=== PATIENT | male | born 1960 | race Caucasian/White ===

== ENCOUNTER 2019-04-09 11:24 | Inpatient (IN) | payer OTHER, SELFPAY ==
[2019-04-09] VITALS (8 sets, daily range): BP systolic 128–172; BP diastolic 84–120; PULSE 84–102; RESP 14–20; TEMP 36.4–36.8; O2SAT 88–99; BMI 27.1
--- NOTE | 2019-04-09 11:48 | XR_ITS ---
WS: [id number] CHEST XRAY TECHNIQUE: Portable chest. CLINICAL INFORMATION: sob COMPARISON: None. FINDINGS: Heart: Cardiomegaly. Lungs: Chronic emphysematous changes. No acute pulmonary infiltrates. Calcified granulomas. Bones: Mild thoracic curve. XR/XR chest 1V portable [id number] IMPRESSION: No acute chest findings
--- NOTE | 2019-04-09 11:49 | ECG_ITS ---
Measurements Intervals [place] Rate: 89 P: 77 AL: 153 QRS: -45 QRSD: 100 T: 28 QT: 386 QTc: 470 SINUS RHYTHM POSSIBLE LEFT ATRIAL ENLARGEMENT [-0.1mV P WAVE IN V1/V2] LOW QRS VOLTAGE IN EXTREMITY LEADS [QRS DEFLECTION < 0.5 mV IN LIMB LEADS] PATTERN CONSISTENT WITH PULMONARY DISEASE LEFT ANTERIOR FASCICULAR BLOCK [QRS AXIS <= -45, QR IN I, RS IN II] No previous ECG available for comparison Electronically Signed On 04-09-2019 20:14:19 FRUIT CUTTER by Sahra Mccann M.D. [email or web address]
[2019-04-09 12:22] LABS: Basophils % 0.4 %; Eosinophils # 0.1 10^3/uL (0.0-0.8); Eosinophils % 0.9 %; Hematocrit 46.5 % (42.0-52.0); Hemoglobin 14.7 g/dL (11.7-16.6); Lymphocytes % 13.2 %; Mean Corpuscular HGB Conc 31.6 g/dL (30.0-36.0); Mean Corpuscular Hemoglobin 33.2 pg (28.0-34.0); Mean Platelet Volume 9.4 fL (7.4-10.4); Monocytes # 0.6 10^3/uL (0.2-0.9); Monocytes % 8.5 %; Neutrophils # 5.7 10^3/uL (1.8-7.7); Neutrophils % 76.7 %; Nucleated Red Blood Cells % 0 %; Platelet Count 295 10^3/cmm (130-400); Red Blood Count 4.43 10^6/uL (4.1-5.3); Red Cell Distribution Width 14.8 % (12.1-15.1); White Blood Count 7.4 10^3/uL (4.0-10.0)
[2019-04-09 12:49] LABS: Alanine Aminotransferase 23 U/L (0-41); Alkaline Phosphatase 113 IU/L (40-130); Anion Gap 14.2 (5-19); Aspartate Amino Transferase 24 U/L (0-40); Blood Urea Nitrogen 18 mg/dL (6-20); Calcium 9.9 mg/dL (8.5-10.5); Carbon Dioxide 31 mmol/L (22-29); Chloride 99 mmol/L (98-107); Globulin 4.5 g/dL (1.3-4.6); Glucose 99 mg/dL (74-109); Potassium 5.2 mmol/L (3.5-5.1); Sodium 139 mmol/L (136-145); Total Bilirubin 0.3 mg/dL (0.15-1.2); Total Protein 7.5 g/dL (6.6-8.7)
--- NOTE | 2019-04-09 15:40 | ED_ITS ---
Entered by Bertha Macias acting as scribe for Charlene Aldrich Apr 09, 2019 11:24 HPI - SOB/Dyspnea General: Chief Complaint: Shortness of Breath/Dyspnea Stated Complaint: FULL OF FLUID Time Seen by Provider: 04/09/19 15:38 Source: patient and RN notes reviewed Mode of arrival: ambulatory Limitations: no limitations History of Present Illness: HPI Narrative: 58 yo male presents to ED with complaints of shortness of breath. The patient states his belly is bloated. He said he is normally short of breath due to his COPD. He has gained 20 pounds recently due to his swelling. He said this began a week ago. He said laying flat does not increase his shortness of breath. The patient's PCP sent the patient to the ED due to his swelling. He gets more short of breath with exertion. He has chest pain with exertion. 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 The patient's PCP is Dr Sagastume. MD elicited complaint: shortness of breath Pertinent past history: COPD Onset (ago): week(s) (1) Context: other (unknown cause) Timing: constant Severity: moderate Exacerbating factors: exertion Relieving factors: nothing Known history of: COPD Associated symptoms: Reports abdominal pain; Deny chest congestion, chest pain, diaphoresis, dizziness, extremity pain, fever(s), hemoptysis, orthopnea, palpitations, polydipsia or syncope Treatment prior to arrival: none Related Data: Home oxygen amount: none Review of Systems General: Reports: other (negative unless marked) Const: Denies: fever, chills, body aches, fatigue, malaise or diaphoresis Eyes: Denies: change in vision or blurry vision ENMT: Denies: throat pain, painful swallowing, hoarseness, ear pain, ear discharge, Change in hearing or nasal discharge Card: Denies: chest pain, palpitations, irregular heart rhythm, syncope, pre- syncope or shortness of breath when lying down Resp: Denies: productive cough, non-productive cough, wheezing, coughing up blood or chest congestion GI: Reports: abdominal pain : Denies: flank pain, difficulty urinating, painful urination, urinary frequency, urinary urgency, decreased urine ouput, urinary incontinence or blood in urine Musc: Denies: neck pain, back pain, extremity pain, joint pain, joint swelling, joint warmth or joint stiffness Skin/Breast: Denies: rash, skin tenderness or yellow skin Neuro: Denies: headache, numbness in extremities, weakness in extremities, changes in sensation, lack of coordination, difficulty walking, dizziness, vertigo or confusion Endo: Denies: excessive thirst, tired all the time, cold intolerance, excessive sweating, flushing or hot flashes Gavino/Lymph: Denies: easy bruising, easy bleeding, petechiae or enlarged lymph nodes All/Imm: Denies: hives, throat swelling, tongue swelling, facial swelling or acute wheezing PFSH ED PFSH: Statuses (acute, chronic, etc) shown below reflect problem list status as previously entered and may not be historically accurate Medical History (Updated 04/09/19 @ 22:04 by Jamaal Cochran MD) COPD (chronic obstructive pulmonary disease) (Acute) History of coronary angiogram (Acute) Hyperlipidemia (Acute) Hypertension (Acute) Peripheral vascular disease (Acute) Surgical History (Updated 04/09/19 @ 22:04 by Jamaal Cochran MD) History of facial surgery (Acute) Family History (Updated 04/09/19 @ 22:05 by Jamaal Cochran MD) Other CAD (coronary artery disease) Social History (Updated 04/09/19 @ 22:05 by Jamaal Cochran MD) Smoking and tobacco status: current every day smoker Alcohol intake: current Alcohol intake frequency: 3 or more drinks per day Alcohol use comment: Binge drinking alcohol Substance/Drug Use: never Physical Exam Const: COMMON NORMALS: no apparent distress, oriented x3, no limitations, healthy appearing and well nourished EXAM LIMITATIONS: no altered mental status GENERAL APPEARANCE: cooperative, well kempt and well developed ORIENTATION/CONSCIOUSNESS: Yes awake HENMT: COMMON NORMALS: normocephalic, head/scalp atraumatic, hearing grossly normal bilaterally, external ears normal, EAC's normal, external nose normal and moist oral mucous membranes HEAD & SCALP: normal to inspection, normocephalic and atraumatic FACE & SINUS: normal facial exam and face symmetric NOSE: external nose normal and nares normal EXTERNAL EAR: Yes external ears normal EXTERNAL AUDITORY CANAL: EAC's normal MOUTH: oral and palatal mucosa normal and tongue normal Eye: COMMON NORMALS: PERRL, EOMs intact bilaterally, conjunctivae normal and no scleral icterus GENERAL EYE: normal appearance of both eyes and normal light reflex CONJUNCTIVA: Yes conjunctivae normal SCLERA: sclerae normal CORNEA: Yes corneas normal PUPIL: Yes PERRL DIRECT OPHTHALMOSCOPY: Yes normal light reflex Neck/C-Spine: COMMON NORMALS: full ROM, no lymphadenopathy, supple, no meningeal signs and no JVD GENERAL: Yes normal visual inspection and Yes trachea midline CERVICAL SPINE: Yes cervical ROM normal Chest: COMMONS NORMALS: inspection of chest normal and palpation of chest normal Resp: COMMON NORMALS: normal respiratory effort, no retractions and no use of accessory muscles EFFORT & INSPECTION: Yes able to speak in complete sentences AUSCULTATION: rales Cardio: COMMON NORMALS: no JVD, regular rate, regular rhythm, S1 normal heart sound, S2 normal heart sound, no gallops, no clicks, no murmurs and no rub JUGULAR VENOUS DISTENTION: no JVD RATE: regular rate RHYTHM: regular rhythm HEART SOUNDS: S1 normal and S2 normal GI: COMMON NORMALS: soft to palpation, non-tender, no hepatosplenomegaly and no masses INSPECTION: Yes normal to inspection PALPATION: Yes soft and Yes no hepatosplenomegaly : COMMON NORMALS: Yes no CVA tenderness BLADDER/KIDNEY EXAM: Yes no CVA tenderness Back/Pelvis: COMMON NORMALS: no CVA tenderness, thoracic and lumbar spine normal to inspection, no thoracic nor lumbar tenderness and thoraco-lumbar ROM normal Extremity: COMMON NORMALS: normal to inspection, full ROM, normal capillary refill, no joint enlargement and no calf tenderness GENERAL: Yes other findings (Bilateral lower extremity edema) Neuro: COMMON NORMALS: oriented x3, CN's II-XII intact bilaterally, moves all extremities, no focal motor deficits and no sensory deficits noted MENINGEAL SIGNS: Yes no meningeal signs Psych: COMMON NORMALS: mental status grossly normal, thought process normal, cooperative, affect normal, speech normal and activity/motor behavior normal APPEARANCE: Yes well kempt SPEECH: Yes normal speech THOUGHT PROCESS: normal thought process Skin: COMMON NORMALS: no rashes or lesions noted, skin turgor normal, no jaundice, no petechiae and no mottling GENERAL SKIN EXAM: no rashes or lesions noted and turgor normal Course Vital Signs: Vital signs: Vital Signs Temperature 97.6 F 04/09/19 22:00 Pulse Rate 102 H 04/09/19 22:00 Respiratory Rate 18 04/09/19 22:00 Blood Pressure 171/117 04/09/19 22:00 Pulse Oximetry 93 04/09/19 22:00 MDM - SOB/Dyspnea MDM Narrative: Medical decision making narrative: Patient comes in complaining of a 20 pound weight gain within a week. He has increased leg swelling. There is no sign of DVT or PE. The case is reviewed with Dr. Cristobal he is agreeable to admit the patient for CHF exacerbation. Lab Data: Attestation: I reviewed the patient's lab results. Labs: Lab Results 04/09/19 04/09/19 04/09/19 Range/Units 11:58 12:12 12:12 WBC 7.4 (4.0-10.0) 10^3/ uL RBC 4.43 (4.1-5.3) 10^6/u L Hgb 14.7 (11.7-16.6) g/dL Hct 46.5 (42.0-52.0) % MCV 105.0 H (80-94) fL MCH 33.2 (28.0-34.0) pg MCHC 31.6 (30.0-36.0) g/dL RDW 14.8 (12.1-15.1) % Plt Count 295 (130-400) 10^3/c mm MPV 9.4 (7.4-10.4) fL Neut % (Auto) 76.7 % Lymph % (Auto) 13.2 % Angelina % (Auto) 8.5 % Eos % (Auto) 0.9 % Baso % (Auto) 0.4 % Neut # (Auto) 5.7 (1.8-7.7) 10^3/u L Lymph # (Auto) 1.0 (0.8-4.8) 10^3/u L Angelina # (Auto) 0.6 (0.2-0.9) 10^3/u L Eos # (Auto) 0.1 (0.0-0.8) 10^3/u L Baso # (Auto) 0.0 (0.0-0.1) 10^3/u L Nucleated RBC % (a uto) 0 % Nucleated RBCs # 0.0 /100WBC D-Dimer (0-0.59) ug/mIFE U Specimen Type Sample Site ABG pH (7.35-7.45) ABG pCO2 (35-45) mmHg ABG pO2 (80.0-100.0) mmH g ABG HCO3 (22-26) mmol/L ABG Base Excess (-2.0-2.0) mmol/ L Gunnar Test Hematocrit (42-52) % O2 Delivery Device O2 Liters/Min % FiO2 % [employer] Teacher ID Sodium 139 (136-145) mmol/L Potassium 5.2 H (3.5-5.1) mmol/L Chloride 99 (98-107) mmol/L Carbon Dioxide 31 H (22-29) mmol/L Anion Gap 14.2 (5-19) BUN 18 (6-20) mg/dL Creatinine 1.1 (0.7-1.2) mg/dL GFR Calculation 69.0 L (90-130) mL/min Glucose 99 (74-109) mg/dL Calcium 9.9 (8.5-10.5) mg/dL Total Bilirubin 0.3 (0.15-1.2) mg/dL AST 24 (0-40) U/L ALT 23 (0-41) U/L Alkaline Phosphata se 113 (40-130) IU/L Troponin T Baselin e (0-15) ng/mL Troponin T 120 Min [place] (0-15) ng/mL Delta Troponin T (0-10) ABS# NT-Pro-B Natriuret Pep (0-125) pg/mL Total Protein 7.5 (6.6-8.7) g/dL Albumin 3.0 L (3.5-5.2) g/dL Globulin 4.5 (1.3-4.6) g/dL Influenza Type A A g Negative (Negative) POC Influenza B Ag Negative (Negative) 04/09/19 04/09/19 04/09/19 Range/Units 12:12 16:22 16:28 WBC (4.0-10.0) 10^3/ uL RBC (4.1-5.3) 10^6/u L Hgb (11.7-16.6) g/dL Hct (42.0-52.0) % MCV (80-94) fL MCH (28.0-34.0) pg MCHC (30.0-36.0) g/dL RDW (12.1-15.1) % Plt Count (130-400) 10^3/c mm MPV (7.4-10.4) fL Neut % (Auto) % Lymph % (Auto) % Angelina % (Auto) % Eos % (Auto) % Baso % (Auto) % Neut # (Auto) (1.8-7.7) 10^3/u L Lymph # (Auto) (0.8-4.8) 10^3/u L Angelina # (Auto) (0.2-0.9) 10^3/u L Eos # (Auto) (0.0-0.8) 10^3/u L Baso # (Auto) (0.0-0.1) 10^3/u L Nucleated RBC % (a uto) % Nucleated RBCs # /100WBC D-Dimer 1.83 H (0-0.59) ug/mIFE U Specimen Type Arterial Sample Site Radial, left ABG pH 7.37 (7.35-7.45) ABG pCO2 54.2 H (35-45) mmHg ABG pO2 87.8 (80.0-100.0) mmH g ABG HCO3 31.4 H (22-26) mmol/L ABG Base Excess 4.6 H (-2.0-2.0) mmol/ L Gunnar Test Pos Hematocrit 43.4 (42-52) % O2 Delivery Device Nc O2 Liters/Min 2.0 % FiO2 28.0 % [employer] ID cak Sodium (136-145) mmol/L Potassium (3.5-5.1) mmol/L Chloride (98-107) mmol/L Carbon Dioxide (22-29) mmol/L Anion Gap (5-19) BUN (6-20) mg/dL Creatinine (0.7-1.2) mg/dL GFR Calculation (90-130) mL/min Glucose (74-109) mg/dL Calcium (8.5-10.5) mg/dL Total Bilirubin (0.15-1.2) mg/dL AST (0-40) U/L ALT (0-41) U/L Alkaline Phosphata se (40-130) IU/L Troponin T Baselin e 28 H (0-15) ng/mL Troponin T 120 Min [place] (0-15) ng/mL Delta Troponin T (0-10) ABS# NT-Pro-B Natriuret Pep (0-125) pg/mL Total Protein (6.6-8.7) g/dL Albumin (3.5-5.2) g/dL Globulin (1.3-4.6) g/dL Influenza Type A A g (Negative) POC Influenza B Ag (Negative) 04/09/19 04/09/19 Range/Units 16:28 16:28 WBC (4.0-10.0) 10^3/ uL RBC (4.1-5.3) 10^6/u L Hgb (11.7-16.6) g/dL Hct (42.0-52.0) % MCV (80-94) fL MCH (28.0-34.0) pg MCHC (30.0-36.0) g/dL RDW (12.1-15.1) % Plt Count (130-400) 10^3/c mm MPV (7.4-10.4) fL Neut % (Auto) % Lymph % (Auto) % Angelina % (Auto) % Eos % (Auto) % Baso % (Auto) % Neut # (Auto) (1.8-7.7) 10^3/u L Lymph # (Auto) (0.8-4.8) 10^3/u L Angelina # (Auto) (0.2-0.9) 10^3/u L Eos # (Auto) (0.0-0.8) 10^3/u L Baso # (Auto) (0.0-0.1) 10^3/u L Nucleated RBC % (a uto) % Nucleated RBCs # /100WBC D-Dimer (0-0.59) ug/mIFE U Specimen Type Sample Site ABG pH (7.35-7.45) ABG pCO2 (35-45) mmHg ABG pO2 (80.0-100.0) mmH g ABG HCO3 (22-26) mmol/L ABG Base Excess (-2.0-2.0) mmol/ L [place] Test Hematocrit (42-52) % O2 Delivery Device O2 Liters/Min % FiO2 % [employer] ID Sodium (136-145) mmol/L Potassium (3.5-5.1) mmol/L Chloride (98-107) mmol/L Carbon Dioxide (22-29) mmol/L Anion Gap (5-19) BUN (6-20) mg/dL Creatinine (0.7-1.2) mg/dL GFR Calculation (90-130) mL/min Glucose (74-109) mg/dL Calcium (8.5-10.5) mg/dL Total Bilirubin (0.15-1.2) mg/dL AST (0-40) U/L ALT (0-41) U/L Alkaline Phosphata se (40-130) IU/L Troponin T Baselin e (0-15) ng/mL Troponin T 120 Min [place] 23.94 H (0-15) ng/mL Delta Troponin T (0-10) ABS# NT-Pro-B Natriuret Pep 6988 H (0-125) pg/mL Total Protein (6.6-8.7) g/dL Albumin (3.5-5.2) g/dL Globulin (1.3-4.6) g/dL Influenza Type A A g (Negative) POC Influenza B Ag (Negative) Imaging Data^: CXR: Radiologist's impression: [place] [address] XRay Report Signed Patient: Filiberto Thomas #: [id number] : 2Acct#:[id number] Age/Sex: 58 / MADM Date: 04/09/19 Loc: [facility]/Bed: Attending Dr: Ordering Provider/Ordering MD: Mouna Arreguin NP Date of Service: 04/09/19 Procedure(s): XR chest 1V portable [id number] Accession Number(s): [id number] Report Number: [id number] WS: [id number] CHEST XRAY TECHNIQUE: Portable chest. CLINICAL INFORMATION: sob COMPARISON: None. FINDINGS: Heart: Cardiomegaly. Lungs: Chronic emphysematous changes. No acute pulmonary infiltrates. Calcified granulomas. Bones: Mild thoracic curve. XR/XR chest 1V portable [id number] IMPRESSION: No acute chest findings Dictated By:Davis Mansfield MD Signed By:Davis Mansfieldigned Date/Time:04/09/19 1247 DD/ CT Abd/Pel: Radiologist's impression: [address] [place] [address] CT Scan Report Signed Patient: Filiberto Thomas #: [id number] : 2Acct#:[id number] Age/Sex: 58 / MADM Date: 04/09/19 Loc: [facility]/Bed: Attending Dr: Ordering Provider/Ordering MD: Charlene Aldrich DO Date of Service: 04/09/19 Procedure(s): CT angio chest w abd pel w con Accession Number(s): [id number] Report Number: [id number] PROCEDURE INFORMATION: Exam: CT Angiography Chest With Contrast Exam date and time: 04/09/2019 5:12 PM Age: 58 years old Clinical indication: Abdominal tenderness; Angina and shortness of breath; Prior surgery; Surgery date: 6+ months; Surgery type: Rib punctured lung; Additional info: Dyspnea TECHNIQUE: Imaging protocol: Computed tomographic angiography of the chest with intravenous contrast. 3D rendering: MIP and/or 3D reconstructed images were created by the technologist. Total DLP: 1317.76 mGy-cm Radiation optimization: All CT scans at this facility use at least one of these dose optimization techniques: automated exposure control; mA and/or kV adjustment per patient size (includes targeted exams where dose is matched to clinical indication); or iterative reconstruction. Contrast material: [id number]; Contrast volume: 95 ml; Contrast route: IV; COMPARISON: CT Chest/Abdomen/Pelvis o 09/10/2013 12:35 AM FINDINGS: Pulmonary arteries: Overall exam quality is good for evaluating the pulmonary arteries. There are no intraluminal filling defects to indicate pulmonary embolism. Aorta: Unremarkable. No aortic aneurysm. No aortic dissection. Lungs: Diffusely thickened septal lines are noted throughout the lungs and have increased since 2013. The overall appearance is most consistent with generalized pulmonary fibrosis. There is centrilobular emphysema with an upper lobe predominance. No pneumonia or mass. Scattered incidental calcified granulomas. Pleural space: Unremarkable. No pneumothorax. No pleural effusion. Heart: Numerous calcified plaques in the left coronary arteries. Lymph nodes: Several mildly enlarged mediastinal and paratracheal lymph nodes up to 1.4 cm, most likely reactive. Bones/joints: Unremarkable. No acute fracture. Soft tissues: Unremarkable. IMPRESSION: 1. No pulmonary embolism or pneumonia. 2. Pulmonary fibrosis and emphysema. 3. Other chronic and incidental findings as described PROCEDURE INFORMATION: Exam: CT Abdomen And Pelvis With Contrast Exam date and time: 04/09/2019 5:12 PM Age: 58 years old Clinical indication: Abdominal tenderness; Angina and shortness of breath; Prior surgery; Surgery date: 6+ months; Surgery type: Rib punctured lung; Additional info: Dyspnea TECHNIQUE: Imaging protocol: Computed tomography of the abdomen and pelvis with intravenous contrast. Total DLP: 1317.76 mGy-cm Radiation optimization: All CT scans at this facility use at least one of these dose optimization techniques: automated exposure control; mA and/or kV adjustment per patient size (includes targeted exams where dose is matched to clinical indication); or iterative reconstruction. Contrast material: [id number]; Contrast volume: 95 ml; Contrast route: IV; COMPARISON: CT Chest/Abdomen/Pelvis o 09/10/2013 12:35 AM FINDINGS: Liver: Normal. No mass. Gallbladder and bile ducts: Normal. No calcified stones. No ductal dilation. Pancreas: Normal. No ductal dilation. Spleen: Normal. No splenomegaly. Adrenals: Both adrenal glands are mildly enlarged and have a fatty component similar to 2014. This may be due to adenomas and/or hypertrophy. Follow-up is not needed. Kidneys and ureters: Normal. No hydronephrosis. Stomach and bowel: Scattered distal colonic diverticula are not inflamed. Appendix: The appendix is normal. Intraperitoneal space: Trace pelvic free fluid. Vasculature: Numerous calcified plaques throughout the arterial tree. There is significant stenosis with near occlusion in both common femoral arteries due to heavy calcified plaque. Lymph nodes: Unremarkable. No enlarged lymph nodes. Bladder: Unremarkable as visualized. Reproductive: Unremarkable as visualized. Bones/joints: L5-S1 4 mm of grade 1 subluxation due to bilateral chronic pars defects. Soft tissues: Unremarkable. Other findings: Mild to moderate generalized 3rd spacing of fluids. CT/CT angio chest w abd pel w con IMPRESSION: 1. No acute abdominal or pelvic findings. 2. Incidental findings as described. Radiation Dose CTDIVOL = (mGy): DLP = 1317.76~1317.76 (mGy-cm) Dictated By:Jose Mercado MD Signed By:Jose Mercadoigned Date/Time:04/09/191939 DD/ Discharge Plan Discharge Patient Disposition: Admitted As Inpatient Admit Provider: Jamaal Cochran Clinical Impression: Congestive heart failure Qualifiers: Heart failure type: unspecified Heart failure chronicity: acute Qualified Code(s): I50.9 - Heart failure, unspecified Condition: Stable Referrals: Jag Sagastume [Primary Care Provider] - Discharge Date/Time: 04/09/19 21:54 Coding Level of Care Code ED Media Consultant for Chg Fwd Exam Problem Focused The documentation recorded by the Gilberto rowe Valerie R, accurately reflects the service I personally performed and the decisions made by Elinor taveras Eli N Apr 09, 2019 11:24
--- NOTE | 2019-04-09 15:53 | ECG_ITS ---
Measurements Intervals [place] Rate: 82 P: 72 OR: 157 QRS: 27 QRSD: 105 T: 34 QT: 383 QTc: 448 SINUS RHYTHM LOW QRS VOLTAGE IN EXTREMITY LEADS [QRS DEFLECTION < 0.5 mV IN LIMB LEADS] POSSIBLE ANTERIOR MYOCARDIAL INFARCTION , OF INDETERMINATE AGE [30 ms Q WAVE IN V3 V3/V4, OR R < 0.2 mV IN V4] No previous ECG available for comparison Electronically Signed On 04-09-2019 20:15:02 POLYSTYRENE MOLDING MACHINE TENDER by Sahra Mccann M.D. [id number]
--- NOTE | 2019-04-09 16:02 | PC.NURSE ---
Placed pt on via NC at 3 lpm Increased 02 sats to 97%
--- NOTE | 2019-04-09 16:26 | CTR_ITS ---
PROCEDURE INFORMATION: Exam: CT Angiography Chest With Contrast Exam date and time: 04/09/2019 5:12 PM Age: 58 years old Clinical indication: Abdominal tenderness; Angina and shortness of breath; Prior surgery; Surgery date: 6+ months; Surgery type: Rib punctured lung; Additional info: Dyspnea TECHNIQUE: Imaging protocol: Computed tomographic angiography of the chest with intravenous contrast. 3D rendering: MIP and/or 3D reconstructed images were created by the technologist. Total DLP: 1317.76 mGy-cm Radiation optimization: All CT scans at this facility use at least one of these dose optimization techniques: automated exposure control; mA and/or kV adjustment per patient size (includes targeted exams where dose is matched to clinical indication); or iterative reconstruction. Contrast material: [id number]; Contrast volume: 95 ml; Contrast route: IV; COMPARISON: CT Chest/Abdomen/Pelvis o 09/10/2013 12:35 AM FINDINGS: Pulmonary arteries: Overall exam quality is good for evaluating the pulmonary arteries. There are no intraluminal filling defects to indicate pulmonary embolism. Aorta: Unremarkable. No aortic aneurysm. No aortic dissection. Lungs: Diffusely thickened septal lines are noted throughout the lungs and have increased since 2013. The overall appearance is most consistent with generalized pulmonary fibrosis. There is centrilobular emphysema with an upper lobe predominance. No pneumonia or mass. Scattered incidental calcified granulomas. Pleural space: Unremarkable. No pneumothorax. No pleural effusion. Heart: Numerous calcified plaques in the left coronary arteries. Lymph nodes: Several mildly enlarged mediastinal and paratracheal lymph nodes up to 1.4 cm, most likely reactive. Bones/joints: Unremarkable. No acute fracture. Soft tissues: Unremarkable. IMPRESSION: 1. No pulmonary embolism or pneumonia. 2. Pulmonary fibrosis and emphysema. 3. Other chronic and incidental findings as described PROCEDURE INFORMATION: Exam: CT Abdomen And Pelvis With Contrast Exam date and time: 04/09/2019 5:12 PM Age: 58 years old Clinical indication: Abdominal tenderness; Angina and shortness of breath; Prior surgery; Surgery date: 6+ months; Surgery type: Rib punctured lung; Additional info: Dyspnea TECHNIQUE: Imaging protocol: Computed tomography of the abdomen and pelvis with intravenous contrast. Total DLP: 1317.76 mGy-cm Radiation optimization: All CT scans at this facility use at least one of these dose optimization techniques: automated exposure control; mA and/or kV adjustment per patient size (includes targeted exams where dose is matched to clinical indication); or iterative reconstruction. Contrast material: [id number]; Contrast volume: 95 ml; Contrast route: IV; COMPARISON: CT Chest[facility] 09/10/2013 12:35 AM FINDINGS: Liver: Normal. No mass. Gallbladder and bile ducts: Normal. No calcified stones. No ductal dilation. Pancreas: Normal. No ductal dilation. Spleen: Normal. No splenomegaly. Adrenals: Both adrenal glands are mildly enlarged and have a fatty component similar to 2013. This may be due to adenomas and/or hypertrophy. Follow-up is not needed. Kidneys and ureters: Normal. No hydronephrosis. Stomach and bowel: Scattered distal colonic diverticula are not inflamed. Appendix: The appendix is normal. Intraperitoneal space: Trace pelvic free fluid. Vasculature: Numerous calcified plaques throughout the arterial tree. There is significant stenosis with near occlusion in both common femoral arteries due to heavy calcified plaque. Lymph nodes: Unremarkable. No enlarged lymph nodes. Bladder: Unremarkable as visualized. Reproductive: Unremarkable as visualized. Bones/joints: L5-S1 4 mm of grade 1 subluxation due to bilateral chronic pars defects. Soft tissues: Unremarkable. Other findings: Mild to moderate generalized 3rd spacing of fluids. CT/CT angio chest w abd pel w con IMPRESSION: 1. No acute abdominal or pelvic findings. 2. Incidental findings as described. Radiation Dose CTDIVOL = (mGy): DLP = 1317.76~1317.76 (mGy-cm)
[2019-04-09 16:33] LABS: ABG PCO2 54.2 mmHg (35-45); ABG PH Result 7.37 (7.35-7.45); Arterial Blood Gas Hematocrit 43.4 % (42-52); Base Excess ABG 4.6 mmol/L (-2.0-2.0); Blood Gas Allen Test Pos; Blood Gas Sample Site Radial, left; Blood Gas Sample Type Arterial; HCO3 ABG 31.4 mmol/L (22-26); Oxygen Device NC; PO2 ABG 87.8 mmHg (80.0-100.0)
[2019-04-09 16:50] LABS: D Dimer 1.83 ug/mIFEU (0-0.59)
[2019-04-09 16:54] LABS: Troponin(5th) Baseline 28 ng/mL (0-15)
[2019-04-09 16:55] LABS: Troponin 5 2HR 23.94 ng/mL (0-15)
[2019-04-09 17:00] LABS: NT Pro B Type Natriuretic Pept 6988 pg/mL (0-125)
[2019-04-09 17:09] LABS: Influenza A by IFA Negative (Negative); Influenza B by IFA Negative (Negative)
[2019-04-09] MEDS: iodixanol 320 mg/mL 100mL Btl 95 ML IV (18:18)
[2019-04-09] MEDS: nitroglycerin 1 gm/inch oint Pkt 1 INCH TOPICAL (19:24)
[2019-04-09] MEDS: LORazepam 1 mg Tablet PO (20:19)
[2019-04-09] MEDS: nicotine 21 mg Patch 1 PATCH TRANSDERMA (20:19)
--- NOTE | 2019-04-09 21:53 | ECG_ITS ---
Measurements Intervals Gregory Rate: 126 P: MD: 0 QRS: 95 QRSD: 115 T: -10 QT: 316 QTc: 459 Sinus TACHYCARDIA BORDERLINE RIGHT AXIS DEVIATION [QRS AXIS > 90] LOW QRS VOLTAGE IN EXTREMITY LEADS [QRS DEFLECTION < 0.5 mV IN LIMB LEADS] POSSIBLE ANTERIOR MYOCARDIAL INFARCTION [30 ms Q WAVE IN V3/V4, OR R < 0.2 mV IN V4], OF INDETERMINATE AGE INTERPRETATION BASED ON A DEFAULT AGE OF 40 YEARS Compared to ECG 04/09/2019 16:35:49 Sinus rhythm no longer present Myocardial infarct finding still present Electronically Signed On 04-10-2019 9:31:55 VACUUM CONDITIONER OPERATOR by Luis French M.D. [email or web address]
--- NOTE | 2019-04-09 21:58 | P.HP_ITS ---
Providers/Chief Complaint Admitting Physician: Jamaal Cochran MD Primary Care Provider: Jag Sagastume Chief Complaint: CHF History of Present Illness Filiberto Thomas is a 58 year old male with a past medical history of COPD, not oxygen dependent, hypertension, hyperlipidemia, CAD, who presents to the emergency room due to complaints of shortness of breath, and rapid weight gain, bilateral extremity edema, anasarca. Patient states that he was sent to [facility] from the [place] due to 20 pound weight gain in the last 3 weeks, with anasarca, bilateral lower extremity edema, and shortness of breath. Patient states that recently has become more short of breath with exertion, normally states that he can walk 1/8 of a mile without getting short of breath, now is short of breath less than 100 feet, has orthopnea, paroxysmal nocturnal dyspnea, has bilateral lower extremity swelling, generalized anasarca, he complains of abdominal fullness. Patient denies a history of CHF. Patient denies chest pain. Patient has a history of CAD, with a positive stress test, with an angiogram showing an occluded artery with good collateral blood flow. No lightheadedness, no dizziness. Patient is not on Lasix as outpatient. Patient has a history of COPD, has more than a [id number] history of smoking, denies wheezing, has a chronic productive cough with yellow sputum, no fevers, no chills, notes sick contacts. Review of Systems Const: Denies: fever, chills, fatigue or malaise Eyes: Denies: change in vision or blurry vision ENMT: Denies: nasal congestion Card: Denies: chest pain or palpitations Resp: Reports: shortness of breath; Denies: productive cough, non-productive cough or wheezing GI: Denies: abdominal pain, nausea, vomiting, vomiting blood, diarrhea, cons tipation, blood in stool or black tarry stool : Denies: flank pain, difficulty urinating, painful urination or urinary frequency Musc: Denies: neck pain or back pain Skin/Breast: Denies: rash Neuro: Denies: headache, dizziness or vertigo Psych: Denies: anxiety or depression Endo: Denies: excessive urination or excessive thirst Medications/Allergies Home Medications Medication Instructions Recorded Confirmed Last Taken Type albuterol sulfate [Ventolin HFA] 2 puff INHALATION QID PRN 04/09/19 04/09/19 Unknown History aspirin [Aspir-81] 81 mg PO DAILY 04/09/19 04/09/19 04/08/19 History budesonide-formoterol [Symbicort] 2 puff INHALATION BID 04/09/19 04/09/19 04/09/19 History carvedilol 6.25 mg PO BID 04/09/19 04/09/19 Unknown History food supplemt, lactose-reduced 1 ea PO BID 04/09/19 04/09/19 Unknown History [Ensure Plus] isosorbide mononitrate 60 mg PO DAILY 04/09/19 04/09/19 Unknown History multivitamin [Multiple Vitamins] 2 tab PO DAILY 04/09/19 04/09/19 Unknown Hist ory pravastatin 20 mg PO QPM 04/09/19 04/09/19 Unknown History quetiapine [Seroquel] 100 mg PO BEDTIME 04/09/19 04/09/19 Unknown History spironolacton-hydrochlorothiaz 1 tab PO DAILY 04/09/19 04/09/19 Unknown History thiamine HCl (vitamin B1) 100 mg PO DAILY 04/09/19 04/09/19 Unknown History Allergies Allergy/AdvReac Type Severity Reaction Status Date / Time poison justine extract Allergy Unknown Unknown Verified 04/09/19 16:26 bee venom protein (honey bee) Allergy ALGY-Anaphy Verified 04/09/19 11:47 laxis PFSH Acute PFSH: Statuses (acute, chronic, etc) shown below reflect problem list status as previously entered and may not be historically accurate Medical History (Updated 04/09/19 @ 22:04 by Jamaal Cochran MD) COPD (chronic obstructive pulmonary disease) (Acute) History of coronary angiogram (Acute) Hyperlipidemia (Acute) Hypertension (Acute) Peripheral vascular disease (Acute) Surgical History (Updated 04/09/19 @ 22:04 by Jamaal Cochran MD) History of facial surgery (Acute) Family History (Updated 04/09/19 @ 22:05 by Jamaal Cochran MD) Other CAD (coronary artery disease) Social History (Updated 04/09/19 @ 22:05 by Jamaal Cochran MD) Smoking and tobacco status: current every day smoker Alcohol intake: current Alcohol intake frequency: 3 or more drinks per day Alcohol use comment: Binge drinking alcohol Substance/Drug Use: never Vitals/I&O/Wt Last Vital Signs Temp 97.9 F 04/09/19 11:40 Pulse 84 04/09/19 21:00 Resp 18 04/09/19 21:00 BP 157/106 04/09/19 21:00 Pulse Ox 96 04/09/19 21:00 Weight last 48 hrs Weight 78.471 kg Physical Exam Const: COMMON NORMALS: no apparent distress and oriented x3 GENERAL APPEARANCE: cooperative and comfortable HENMT: COMMON NORMALS: normocephalic HEAD & SCALP: normocephalic Eye: COMMON NORMALS: PERRL, EOMs intact bilaterally and no papilledema GENERAL EYE: normal appearance of both eyes PUPIL: Yes PERRL DIRECT OPHTHALMOSCOPY: Yes no papilledema Neck/C-Spine: COMMON NORMALS: full ROM, no lymphadenopathy, no JVD and thyroid normal THYROID: thyroid normal Lymph: LYMPHATIC: no lymphadenopathy noted Chest: COMMONS NORMALS: inspection of chest normal Resp: COMMON NORMALS: normal respiratory effort, no retractions and no use of accessory muscles AUSCULTATION: wheezes and diminished lung sounds (Good air entry) diffuse Cardio: COMMON NORMALS: regular rate, regular rhythm, S1 normal heart sound, S2 normal heart sound, no gallops, no clicks and no murmurs JUGULAR VENOUS DISTENTION: JVD RATE: regular rate RHYTHM: regular rhythm HEART SOUNDS: S1 normal and S2 normal GI: COMMON NORMALS: normal to inspection, nondistended, normoactive bowel sounds, soft to palpation, non-tender and no hepatosplenomegaly INSPECTION: Yes anasarca present PALPATION: Yes soft and Yes no hepatosplenomegaly Extremity: COMMON NORMALS: normal to inspection, full ROM and normal capillary refill NARRATIVE EXTREMITY EXAM: 2+ pitting edema Neuro: COMMON NORMALS: oriented x3, CN's II-XII intact bilaterally, moves all extremities and no focal motor deficits Psych: COMMON NORMALS: mental status grossly normal, thought process normal and cooperative THOUGHT PROCESS: normal thought process Data : 04/09/19 12:12 04/09/19 12:12 A&P Assessment and plan (1) Hypercapnic respiratory failure: -Shortness of breath, anasarca, bilateral lower extremity swelling concerning for new onset CHF -Patient had a positive stress test in 2017, followed by a angiogram showing CAD in 1 of the arteries with good collateral blood flow, patient is unsure of the specifics, [facility] Plan: -Strict I's and O, fluid restrictions -Oral metolazone, with bumex -Cardiac echocardiogram -Monitor urine output, monitor creatinine -Telemetry monitoring Status: Acute Code(s): J96.92 - Respiratory failure, unspecified with hypercapnia (2) Peripheral vascular disease: -CT Angio showed Numerous calcified plaques throughout the arterial tree. There is significant stenosis with near occlusion in both common femoral arteries due to heavy calcified plaque. Plan: -We will do ABIs bilateral lower extremities -Patient will require a outpatient follow up with vascular for possible vascular studies Status: Acute Code(s): I73.9 - Peripheral vascular disease, unspecified (3) Hyperlipidemia: Status: Acute Code(s): E78.5 - Hyperlipidemia, unspecified (4) Hypertension: Status: Acute Code(s): I10 - Essential (primary) hypertension (5) COPD (chronic obstructive pulmonary disease): -CT angiogram of the chest showed Diffusely thickened septal lines are noted throughout the lungs and have increased since 2014. The overall appearance is most consistent with generalized pulmonary fibrosis. There is centrilobular emphysema with an upper lobe predominance. No pneumonia or mass. Scattered incidental calcified granulomas. -Currently not in exacerbation -Continue Symbicort -Nebulizers as needed Status: Acute Code(s): J44.9 - Chronic obstructive pulmonary disease, unspecified (6) Congestive heart failure: Echocardiogram Status: Acute Qualifiers: Heart failure chronicity: acute Heart failure type: unspecified Qualified Code(s): I50.9 - Heart failure, unspecified Code(s): I50.9 - Heart failure, unspecified (7) CAD (coronary artery disease): History of obstructive CAD seen on angiogram 1 year ago Status: Acute Code(s): I25.10 - Atherosclerotic heart disease of [place] coronary artery without angina pectoris Attestations Medical Necessity Statement*: Patient requires hospitalization, outpatient with observation, for new onset CHF Coding Level of Care Code Acute Electronics Assembler And Tester for [facility] Fw Diagnoses Hypercapnic respiratory failure J96.92 Peripheral vascular disease I73.9 Hyperlipidemia E78.5 Hypertension I10 COPD (chronic obstructive pulmonary disease) J44.9 Congestive heart failure I50.9 Heart failure chronicity: acute Heart failure type: unspecified CAD (coronary artery disease) I25.10
--- NOTE | 2019-04-09 22:00 | USCV_ITS ---
Filiberto Thomas Age: 58 Gender: M : 1960 Exam Date: 04/10/2019 06:38 Ordering Phys: Jamaal Cochran MD Technologist: Alex Lagos Exam Location: [facility] [place] Indication: POOR PULSES RIGHT LEFT Brachial 105.00 mmHg Brachial 104.00 mmHg Pressure (mmHg) Waveform Pressure (mmHg) Waveform 45.00 MOLD SHAKER 60.00 50.00 DPA 70.00 0.47 Ankle/Brachial Index 0.67 FINDINGS Abnormal resting ABIs bilaterally CONCLUSIONS Abnormal resting ABIs bilaterally, suggestive of severe peripheral artery disease on the right side and moderately severe disease on the left side Dr Joy Lambert MD [facility] (Electronically Signed) Final Date: 10 April 2019 15:17 S
--- NOTE | 2019-04-09 22:00 | USCV_ITS ---
Filiberto Thomas Age: 58 Gender: M : 1960 Exam Date: 04/10/2019 06:20 Ordering Phys: Jamaal Cochran MD Technologist: Alex Lagos Exam Location: [facility] [place] Indication: SOB BP: 105 / 70 HR: 119 Rhythm: Sinus Technical Quality: Suboptimal MEASUREMENTS (Male / Female) Normal Values 2D ECHO LV Diastolic Diameter PLAX 3.8 cm 4.2 - 5.9 / 3.9 - 5.3 cm LV Systolic Diameter PLAX 2.8 cm IVS Diastolic Thickness 1.1 cm 0.6 - 1.0 / 0.6 - 0.9 cm IVS Systolic Thickness 1.7 cm LVPW Diastolic Thickness 1.1 cm 0.6 - 1.0 / 0.6 - 0.9 cm LVPW Systolic Thickness 1.4 cm LVOT Diameter 2.0 cm LV Ejection Fraction 2D Teich 49.3 % LV Ejection Fraction MOD 2C 52.3 % LV Ejection Fraction 2C AL 53.5 % LA Diameter 3.1 cm LA Width 4.1 cm LA Height 5.3 cm RA Width 3.8 cm RA Height 4.7 cm M-MODE LV Diastolic Diameter MM 4.3 cm 4.2 - 5.9 / 3.9 - 5.3 cm LV Systolic Diameter MM 2.7 cm LV Ejection Fraction MM Teich 68.9 % IVS Diastolic Thickness MM 1.2 cm 0.6 - 1.0 / 0.6 - 0.9 cm IVS Systolic Thickness MM 1.4 cm LVPW Diastolic Thickness MM 1.4 cm 0.6 - 1.0 / 0.6 - 0.9 cm LVPW Systolic Thickness MM 1.7 cm RV Diastolic Diameter MM 2.1 cm Aortic Annulus Diameter 3.2 cm LA Ao Ratio MM 1.1 MV E Point Septal Separation 0.9 cm DOPPLER AV Peak Velocity 124.0 cm/s LVOT Peak Velocity 75.0 cm/s AV Area Cont Eq vti 2.5 cm squared AV Area Cont Eq pk 1.9 cm squared MV Area PHT 5.0 cm squared Mitral E to A Ratio 2.7 MV E' Velocity 84.0 cm/s Mitral E to LV E' Septal Ratio 12.3 TR Peak Velocity 197.0 cm/s TR Peak Gradient 15.5 mmHg TV Peak E Velocity 87.0 cm/s Right Atrial Pressure 3.0 mmHg Pulmonary Artery Systolic Pressu 18.5 mmHg FINDINGS Left Ventricle The rhythm is sinus tachycardia which decreases the sensitivity somewhat. The ventricle appears to be normal in size and function. There are no obvious wall motion disturbances. Diastolic function is probably normal. Ejection fraction is about 60%. Right Ventricle Normal right ventricular size and systolic function. Normal right ventricular systolic pressure. Right Atrium The right atrium is normal in size. Left Atrium Mildly increased left atrial size. Mitral Valve Mitral valve not well visualized. No obvious stenosis or regurgitation Aortic Valve Aortic valve not well visualized. No obvious stenosis or regurgitation Tricuspid Valve Tricuspid valve not well visualized. No obvious stenosis or regurgitation Pulmonic Valve Pulmonic valve not well visualized. Pericardium There is a tiny amount of pericardial fluid seen in the apical view. It is not hemodynamically significant. Aorta Normal ascending aorta dimension. CONCLUSIONS The rhythm is sinus tachycardia which decreases the sensitivity somewhat. The ventricle appears to be normal in size and function. There are no obvious wall motion disturbances. Diastolic function is probably normal. Ejection fraction is about 60%. Mildly increased left atrial size. There is a tiny amount of pericardial fluid seen in the apical view. It is not hemodynamically significant. There are no prior echocardiogram studies to compare. Dr. Luis French MD (Electronically Signed) Final Date: 10 April 2019 09:14 S
[2019-04-09 22:22] LABS: Troponin 5 6HR 25.66 ng/L (0-15)
--- NOTE | 2019-04-09 22:30 | PC.NURSE ---
Patient arrived by stretcher from the ER, Patient is alert and oriented to person,time, place, and situation, Patient states, Im hungry Three sandwich trays given, patient at 100 percent, oriented patient to room and call light system, Teaching provided to patient regarding the medications and the importance of weighing daily and intake and output. Patient verbalizes understanding. Patient in good spirits, telling jokes, Respirations even and non-labored. Full admission assessment per flow sheet. Call light within reach. care continued.
[2019-04-09 22:37] LABS: Troponin 5 6HR Delta -2.34 ng/L (0-12)
[2019-04-09] MEDS: enoxaparin 40 mg/0.4 mL Syringe SUBCUT (22:42)
[2019-04-09] MEDS: metOLazone 5 MG Tablet PO (22:42)
[2019-04-09] MEDS: bumetanide 0.25 mg/mL SDV 10 mL 1 MG IV (22:43)
[2019-04-09] MEDS: quetiapine 100 mg Tablet PO (22:43)
[2019-04-09 23:03] LABS: Thyroid Stimulating Hormone 0.77 uIU/mL (0.27-4.20)
[2019-04-10] VITALS (21 sets, daily range): BP systolic 89–114; BP diastolic 64–83; PULSE 89–125; RESP 0–22; TEMP 36.4–37.4; O2SAT 90–99
[2019-04-10] MEDS: LORazepam 2 mg Tablet PO (03:08)
[2019-04-10 04:14] LABS: Basophils % 0.6 %; Eosinophils # 0.1 10^3/uL (0.0-0.8); Eosinophils % 1.6 %; Hematocrit 48.5 % (42.0-52.0); Hemoglobin 14.9 g/dL (11.7-16.6); Mean Corpuscular HGB Conc 30.7 g/dL (30.0-36.0); Mean Corpuscular Hemoglobin 32.5 pg (28.0-34.0); Mean Corpuscular Volume 105.9 fL (80-94); Mean Platelet Volume 9.8 fL (7.4-10.4); Monocytes # 0.5 10^3/uL (0.2-0.9); Monocytes % 9.9 %; Neutrophils # 3.3 10^3/uL (1.8-7.7); Neutrophils % 66.3 %; Nucleated Red Blood Cells % 0 %; Platelet Count 311 10^3/cmm (130-400); Red Blood Count 4.58 10^6/uL (4.1-5.3); Red Cell Distribution Width 14.7 % (12.1-15.1)
[2019-04-10 04:58] LABS: Magnesium 1.4 mg/dL (1.7-2.3); Phosphorus 5.2 mg/dL (2.5-4.5)
[2019-04-10 04:59] LABS: Anion Gap 13.3 (5-19); Blood Urea Nitrogen 17 mg/dL (6-20); Calcium 9.7 mg/dL (8.5-10.5); Carbon Dioxide 35 mmol/L (22-29); Chloride 98 mmol/L (98-107); Glomerular Filtration Rate 62.4 mL/min (90-130); Glucose 127 mg/dL (65-115); Osmolality Calculated 292 mOsm/kg (285-295); Potassium 4.3 mmol/L (3.5-5.1); Sodium 142 mmol/L (136-145)
[2019-04-10 05:00] LABS: Chol HDL Ratio 2.97 mg/dL (1.0-5.00); Cholesterol 92 mg/dL (0-200); HDL Cholesterol 31 mg/dL (60-100); LDL Cholesterol Calculated 42 mg/dL (50-129); LDL HDL Ratio 1.35 RATIO (0.00-3.22); Triglycerides 95 mg/dL (0-150)
[2019-04-10 05:11] LABS: Estmated Average Glucose 123; Hemoglobin A1C 5.9 % (4.0-6.0)
--- NOTE | 2019-04-10 07:05 | PC.NURSE ---
Addendum entered by Gracy Cano RN 04/10/19 07:29: Was called to the patient's room by the CLEANER, CLEANER reported that patient did not look well and 02 saturation checked. Patient saturating 68%, and heart rate increasing, from 120 to 135, Rapid Response initiated, Dr. Cochran, in room with rapid response in progress, patient was placed on CPAP and IV bumex and IV blood pressure medication given as ordered per physician. Patient transferred to ICU room 112 as ordered per physician, Report given to ICU nurse Original Note:
--- NOTE | 2019-04-10 07:11 | XR_ITS ---
WS: [id number] CHEST XRAY TECHNIQUE: Portable chest. CLINICAL INFORMATION: SOB COMPARISON: April 09, 2019 FINDINGS: Heart: Cardiomegaly Lungs: Chronic emphysematous changes. No acute pulmonary infiltrates. Calcified granulomas. Bones: Normal visualized bony structures. XR/XR chest 1V portable [id number] IMPRESSION: No acute chest findings
[2019-04-10] MEDS: bumetanide 0.25 mg/mL SDV 10 mL 2 MG IV (07:17)
[2019-04-10] MEDS: metoprolol tartrate 1 mg/1 mL SDV 5 mL 5 MG (07:17)
--- NOTE | 2019-04-10 07:22 | PM.MISC ---
Miscellaneous Note Purpose of Documentation: At 7:15 AM rapid response was called, patient was having episodes of shortness of breath, with desaturations down to the low 80s. When I was entering the room, patient was put on BiPAP, tolerating it well, good air entry bilaterally, no crackles, no wheezings bilaterally, said that his breathing was better, chest x-ray showed pulmonary vascular congestion, likely patient has acute hypoxic respiratory failure with acute flash pulmonary edema I gave him 2 mg of Bumex. Continue BiPAP 18/10 40% FiO2. Patient has a history of smoking, history of COPD, given 125 mg of Solu-Medrol with a DuoNeb treatment. Patient had SVT on EKG, I gave him 5 mg IV metoprolol, heart rates came down to the 100s to 110s, sinus tachycardia likely related to acute respiratory failure. Currently patient is being moved from CSU to the ICU.
[2019-04-10 07:23] LABS: ABG PCO2 84.2 mmHg (35-45); ABG PH Result 7.23 (7.35-7.45); Alveolar-Arterial Oxygen Gradi 234.7 mmHg (5-10); Arterial Blood Gas Hematocrit 45.6 % (42-52); Base Excess ABG 4.5 mmol/L (-2.0-2.0); Blood Gas Allen Test Pos; Blood Gas Sample Site Radial, left; Blood Gas Sample Type Arterial; HCO3 ABG 35.3 mmol/L (22-26); HGB O2 Sat 92.4 % (95-100); Ionized Calcium Level - ABG 1.3 mmol/L (1.1-1.4); Methemoglobin 0.3 % (0.4-1.5); Oxygen Device BIPAP; Oxygen Saturation ABG 98.6; Potassium Level - ABG 4.8 mmol/L (3.5-5.0); Total Hemoglobin 14.9 g/dL (14-18)
--- NOTE | 2019-04-10 07:47 | PC.NURSE ---
attempted to contact next of kin on the demographics, at , Aydin (patient's son) attempted to be notified at number but was unable to leave a message, and nobody answered the call at this time.
--- NOTE | 2019-04-10 07:48 | PC.NURSE ---
recd from csu per bed after r.r. d/t decreased l.o.c. and low sat.
--- NOTE | 2019-04-10 07:50 | PC.NURSE ---
opens eyes to verbal stimulation
[2019-04-10] MEDS: ipratropium-albuterol 3 mL Neb INHALATION ×6 (08:09→23:46)
--- NOTE | 2019-04-10 10:13 | PC.CHAP ---
Pastoral Care Encounter/Spiritual Assessment Type of Contact [] Declined shoe stitcher visit [] Patient/Family/Request visit [] Outpatient visit [] Follow-up visit [] Physician referral [] Code/Alert [] Routine visit [] Staff referral [] Actively dying [] Patient sleeping [] Family support [] [] Out of room [] Palliative care [] [] Receiving care in room [] Pre-surgical visit [] Trauma [] Long length of stay [] ICU visit [] Other: Relational/Emotional Strength [] Patient feels connected with others/family/visitors/staff [] Distress [] Loneliness/isolation [] Abandonment Spirituality of Patient [] Person of Shilpi [] Attends Uatsdin of their Shilpi [] Believes in Prayer [] Reads Bible or Yazidi materials [] There are Spiritual issues to be addressed Medical Recruiter Interventions [] Prayer [] Active listening [] Non-anxious presence [] Spiritual/emotional support [] Crisis/trauma care [] Spiritual counseling [] Bereavement support [] Provided bereavement packet [] Provided Bible/devotional materials [] Provided toy/stuffed animal, coloring book to patient or family member [] Provided Communion [] Anointing/Stokes [] Salvation [] Completed spiritual assessment [] Other: Impact on Illness or Injury [] Angry [] Fearful [] Anxious [] Often cries [] Exhaustion [] Unable to work [] Unable to attend samaritan [] Unable to walk/stand [] Unable to read [] Unable to drive [] Unable to eat/drink [] Unable to sleep [] Unable to be with family [] Patient intubated [] Other: Summary THE patient was sleeping. The shoe stitcher prayed for the patient outside the door. Time spent with patient 6 min.
[2019-04-10] MEDS: thiamine 100 mg Tablet PO (10:20)
[2019-04-10] MEDS: aspirin 81 mg EC Tablet PO (10:21)
[2019-04-10] MEDS: hydroCHLOROthiazide 25 mg Tablet PO (10:23)
[2019-04-10] MEDS: carvedilol 12.5 mg Tablet 6.25 MG PO ×2 (10:24→17:42)
[2019-04-10] MEDS: folic acid 1 mg Tablet PO (10:24)
[2019-04-10] MEDS: spironolactone 25 mg Tablet PO (10:24)
--- NOTE | 2019-04-10 10:42 | PC.NURSE ---
imdur not given at this time d/t b/p somewhat low.
[2019-04-10] MEDS: multivitamin therapeutic Tablet 1 TAB PO (11:06)
--- NOTE | 2019-04-10 12:34 | P.PN_ITS ---
Subjective Subjective: Interval history: Patient presented yesterday with respiratory failure secondary CHF and COPD exacerbation. He was transferred to ICU early in the morning and supported with BiPAP. We were able to get BiPAP off and patient was able to eat. He denied chest pain and reports that his breathing is much improved. Vitals/I&O/Wt Last Vital Signs Temp 97.6 F 04/10/19 03:02 Pulse 125 H 04/10/19 11:23 Resp 19 H 04/10/19 11:23 BP 89/64 04/10/19 08:17 Pulse Ox 96 04/10/19 11:23 04/09/19 04/10/19 04/10/19 22:59 06:59 14:59 Intake Total 0 / 0 700 / 700 Output Total 400 / 400 Balance 0 / 0 700 / 700 -400 / -400 Weight last 48 hrs Weight 78.471 kg Physical Exam Const: COMMON NORMALS: no apparent distress Resp: COMMON NORMALS: negative for normal respiratory effort OTHER: Coarse breath sounds throughout. Some expiratory wheezing appreciated. Cardio: COMMON NORMALS: regular rate, regular rhythm and S2 normal heart sound RATE: regular rate RHYTHM: regular rhythm HEART SOUNDS: S2 normal OTHER: Trace to 1+ lower extremity edema GI: COMMON NORMALS: normal to inspection, nondistended, normoactive bowel sounds, soft to palpation and non-tender PALPATION: Yes soft Data : 04/10/19 03:10 04/10/19 03:10 A&P Assessment and plan (1) Hypercapnic respiratory failure: -Shortness of breath, anasarca, bilateral lower extremity swelling concerning for new onset CHF -Patient had a positive stress test in 2017, followed by a angiogram showing CAD in 1 of the arteries with good collateral blood flow, patient is unsure of the specifics, [facility] Plan: -Strict I's and O, fluid restrictions -Oral metolazone, with bumex -Cardiac echocardiogram -Monitor urine output, monitor creatinine -Telemetry monitoring Status: Acute Code(s): J96.92 - Respiratory failure, unspecified with hypercapnia (2) Peripheral vascular disease: -CT Angio showed Numerous calcified plaques throughout the arterial tree. There is significant stenosis with near occlusion in both common femoral arteries due to heavy calcified plaque. Plan: -We will do ABIs bilateral lower extremities -Patient will require a outpatient follow up with vascular for possible vascular studies Status: Acute Code(s): I73.9 - Peripheral vascular disease, unspecified (3) Hyperlipidemia: Status: Acute Code(s): E78.5 - Hyperlipidemia, unspecified (4) Hypertension: Status: Acute Code(s): I10 - Essential (primary) hypertension (5) COPD (chronic obstructive pulmonary disease): -CT angiogram of the chest showed Diffusely thickened septal lines are noted throughout the lungs and have increased since 2014. The overall appearance is most consistent with generalized pulmonary fibrosis. There is centrilobular emphysema with an upper lobe predominance. No pneumonia or mass. Scattered incidental calcified granulomas. -Currently not in exacerbation -Continue Symbicort -Nebulizers as needed Status: Acute Code(s): J44.9 - Chronic obstructive pulmonary disease, unspecified (6) Congestive heart failure: Echocardiogram Status: Acute Qualifiers: Heart failure chronicity: acute Heart failure type: unspecified Qualified Code(s): I50.9 - Heart failure, unspecified Code(s): I50.9 - Heart failure, unspecified (7) CAD (coronary artery disease): History of obstructive CAD seen on angiogram 1 year ago Status: Acute Code(s): I25.10 - Atherosclerotic heart disease of [place] coronary artery without angina pectoris (8) Alcohol use disorder: Status: Acute Additional A&P Information Will start patient on prednisone and Protonix for GI protection. Start Levaquin for pneumonia prevention. Continue CIWA protocol Continue ICU monitoring for now with BiPAP support as needed. Attestations Medical Necessity Statement*: Patient with respiratory failure requires close ICU monitoring and treatment Time Spent in Patient Care: 16 - 35 minutes Coding Level of Care Code Acute Heel Seat Flap Stapler for [facility] Fwd Diagnoses Hypercapnic respiratory failure J96.92 Peripheral vascular disease I73.9 Hyperlipidemia E78.5 Hypertension I10 COPD (chronic obstructive pulmonary disease) J44.9 Congestive heart failure I50.9 Heart failure chronicity: acute Heart failure type: unspecified CAD (coronary artery disease) I25.10 Alcohol use disorder
[2019-04-10] MEDS: predniSONE 20 mg Tablet 40 MG PO (13:11)
[2019-04-10] MEDS: levofloxacin-dextrose 5 % 750 MG/150 ML PREMIX 150 MG IV (15:01)
[2019-04-10] MEDS: bumetanide 0.25 mg/mL SDV 10 mL 1 MG IV (17:42)
[2019-04-10] MEDS: atorvastatin 40 mg Tablet 20 MG PO (17:42)
[2019-04-10] MEDS: quetiapine 100 mg Tablet PO (20:19)
[2019-04-10] MEDS: enoxaparin 40 mg/0.4 mL Syringe SUBCUT (20:20)
[2019-04-11] VITALS (26 sets, daily range): BP systolic 94–129; BP diastolic 64–92; PULSE 87–108; RESP 0–20; TEMP 36.6–37.1; O2SAT 87–95
[2019-04-11] MEDS: ipratropium-albuterol 3 mL Neb INHALATION ×5 (03:12→21:01)
[2019-04-11] MEDS: bumetanide 0.25 mg/mL SDV 10 mL 1 MG IV (04:15)
[2019-04-11 05:05] LABS: Magnesium 1.4 mg/dL (1.7-2.3); Phosphorus 4.3 mg/dL (2.5-4.5)
[2019-04-11] MEDS: aspirin 81 mg EC Tablet PO (10:06)
[2019-04-11] MEDS: hydroCHLOROthiazide 25 mg Tablet PO (10:06)
[2019-04-11] MEDS: thiamine 100 mg Tablet PO (10:07)
[2019-04-11] MEDS: pantoprazole DR 40 mg Tablet PO (10:08)
[2019-04-11] MEDS: spironolactone 25 mg Tablet PO (10:08)
[2019-04-11] MEDS: multivitamin therapeutic Tablet 1 TAB PO (10:08)
[2019-04-11] MEDS: folic acid 1 mg Tablet PO (10:08)
[2019-04-11] MEDS: predniSONE 20 mg Tablet 40 MG PO (10:08)
[2019-04-11] MEDS: isosorbide mononitrate ER 60 mg Tablet PO (10:09)
[2019-04-11] MEDS: metOLazone 5 MG Tablet PO (10:09)
[2019-04-11] MEDS: carvedilol 12.5 mg Tablet 6.25 MG PO ×2 (10:09→19:00)
[2019-04-11] MEDS: levofloxacin-dextrose 5 % 750 MG/150 ML PREMIX 150 MG IV (12:13)
--- NOTE | 2019-04-11 13:49 | ECG_ITS ---
NAME OF STUDY: LEXISCAN SESTAMIBI STRESS TEST INDICATION: Unatable angina, NOTE: Please note that this is the electrocardiogram portion of the Lexiscan/Sestamibi stress test. The perfusion scan will be documented separately. DATA: Baseline heart rate was 108 beats per minute. Baseline blood pressure was 126/93 millimeters of mercury. Target heart rate was 163. Maximum heart rate achieved was 114. which was 69 % of the predicted target heart rate. Maximum blood pressure was 126/93 millimeters of mercury. The reason for ending the test was completion of the protocol. The patient did not experience any symptoms. ELECTROCARDIOGRAM: BASELINE: Sinus rhythm. Normal axis. Left ventricular hypertrophy, poor R wave progression in the anterior leads most likely due to lead placement EXERCISE: After Lexiscan injection, no ST-T changes suggestive of ischemic noted. No arrhythmia noted. CONCLUSION: Please note due to baseline abnormality of the EKG specificity and sensitivity of the EKG portion of LexiScan MIBI stress test will be low 1. EKG not suggestive of ischemia 2. Lexiscan injection unremarkable. 3. Perfusion scan will be documented separately. Electronically Signed On 04-12-2019 15:31:22 AUTO BODY BUILDER APPRENTICE by Sahra Mccann M.D. [email or web address]
[2019-04-11] MEDS: FUROsemide 10 mg/mL SDV 10mL 80 MG IVP (14:27)
--- NOTE | 2019-04-11 18:10 | P.PN_ITS ---
Subjective Subjective: Interval history: Patient seen in ICU today. On examination patient is lying comfortably in bed. States his shortness of breath and cough has improved remarkably. He is wondering when can he be discharged. He denies of having any nausea, vomiting, headache, dizziness, palpitations, tremors. On further interviewing patient states he has been having shortness of breath and chest pain on exertion for last 5 to 6 months which is gotten worse in last 2 months. Vitals/I&O/Wt Last Vital Signs Temp 98.5 F 04/11/19 06:00 Pulse 98 04/11/19 17:00 Resp 16 04/11/19 17:00 BP 115/74 04/11/19 17:00 Pulse Ox 94 04/11/19 17:00 04/11/19 04/11/19 04/11/19 06:59 14:59 22:59 Intake Total 120 / 810 870 / 870 Output Total 550 / 2200 2250 / 2250 1650 / 3900 Balance -430 / -1390 -1380 / -1380 -1650 / -3030 Physical Exam Narrative: EXAM NARRATIVE: General: No acute distress, AO x3 HEENT: PERRLA, pupils bilaterally equal and reactive Chest: Normal vesicular breath sounds, bilateral occasional fine crackles, equal good air entry bilaterally CVS: S1-S2 regular, no murmurs, no tachycardia, no gallops, no rubs Abdomen: Soft, nontender, no organomegaly, bowel sounds present Neuro: No focal deficits, no facial deformity, AO x3, power 5/5 in all limbs, no tremors Data : 04/10/19 03:10 04/10/19 03:10 A&P Assessment and plan (1) Hypercapnic respiratory failure: - Status: Acute Code(s): J96.92 - Respiratory failure, unspecified with hypercapnia (2) COPD (chronic obstructive pulmonary disease): Status: Acute Code(s): J44.9 - Chronic obstructive pulmonary disease, unspecified (3) Congestive heart failure: Echocardiogram Status: Acute Qualifiers: Heart failure chronicity: acute Heart failure type: unspecified Qualified Code(s): I50.9 - Heart failure, unspecified Code(s): I50.9 - Heart failure, unspecified (4) Peripheral vascular disease: Status: Acute Code(s): I73.9 - Peripheral vascular disease, unspecified (5) Hyperlipidemia: Status: Acute Code(s): E78.5 - Hyperlipidemia, unspecified (6) Hypertension: Status: Acute Code(s): I10 - Essential (primary) hypertension (7) CAD (coronary artery disease): History of obstructive CAD seen on angiogram 1 year ago Status: Acute Code(s): I25.10 - Atherosclerotic heart disease of [place] coronary artery without angina pectoris (8) Alcohol use disorder: Status: Acute Additional A&P Information Hypercapnic respiratory failure: Most likely due to congestive heart failure along with COPD. On reviewing of medication patient is on multiple diuretics with Bumex, s pironolactone, hydrochlorothiazide, metolazone. Patient is overall 3 L negative since admission. Will discontinue Bumex, hydrochlorothiazide and metolazone as patient is not in renal failure. We will change the diuretics to IV Lasix 80 mg every 12 hours. We will continue Spironolactone. Echocardiogram results appreciated. Strict intake and output charting. Daily weights. Continue with home dose of Imdur. COPD: Patient is on prednisone 40 mg daily. We will continue the same. Continue with nebulizations with DuoNeb's, budesonide [id number] with albuterol as needed. Oxygen supplementation keeping saturation over 90%. Will most likely need oxygen evaluation before discharge for home O2. Peripheral vascular disease:CT Angio showed Numerous calcified plaques throughout the arterial tree. There is significant stenosis with near occlusion in both common femoral arteries due to heavy calcified plaque. I do not see LOCO resulted. Will order arterial duplex. Patient will need outpatient follow-up for further work-up. Unstable angina: Patient states he has had stress test in last 2 years which showed obstructive disease. He is not sure of angiogram. We will do a stress test tomorrow morning. N.p.o. after midnight. Continue with aspirin, atorvastatin. Hypertension: Continue with home dose of Coreg and Imdur. Blood pressure under control for now. Alcohol abuse: Patient states he takes half a gallon of alcohol every day. Right now not in to hold withdrawal. Denies of having any alcohol or seizures in the past. Continue Ativan as per [facility] protocol. Full code. Cardiac diet. N.p.o. after midnight. Lovenox for DVT prophylaxis Protonix for PUD prophylaxis Nicotine patch as patient is chronic smoker. Discussed in detail regarding need for smoking cessation. Patient is hemodynamically stable and is at baseline for his oxygen supplementation. Can transfer out of ICU to CSU. Attestations Medical Necessity Statement*: Continued hospitalization for hypercapnic respiratory failure Time Spent in Patient Care: Greater than 35 minutes (>than 50% of time spent in counselling and/or direct pt care on unit) . Coding Level of Care Code Acute Manager House for Jessie Aviles Diagnoses Hypercapnic respiratory failure J96.92 COPD (chronic obstructive pulmonary disease) J44.9 Congestive heart failure I50.9 Heart failure chronicity: acute Heart failure type: unspecified Peripheral vascular disease I73.9 Hyperlipidemia E78.5 Hypertension I10 CAD (coronary artery disease) I25.10 Alcohol use disorder
[2019-04-11] MEDS: atorvastatin 40 mg Tablet 20 MG PO (19:00)
[2019-04-11] MEDS: budesonide 0.5 mg/2 mL Neb INHALATION (21:01)
[2019-04-11] MEDS: enoxaparin 40 mg/0.4 mL Syringe SUBCUT (21:15)
[2019-04-11] MEDS: quetiapine 100 mg Tablet PO (21:16)
[2019-04-12] VITALS (22 sets, daily range): BP systolic 106–152; BP diastolic 69–101; PULSE 22–119; RESP 9–22; TEMP 36.7–36.8; O2SAT 90–100; BMI 24.9
[2019-04-12] MEDS: FUROsemide 10 mg/mL SDV 10mL 80 MG IVP (01:41)
[2019-04-12] MEDS: ipratropium-albuterol 3 mL Neb INHALATION ×4 (02:06→20:50)
[2019-04-12 03:29] LABS: Hematocrit 46.7 % (42.0-52.0); Hemoglobin 14.5 g/dL (11.7-16.6); Lymphocytes # 0.5 10^3/uL (0.8-4.8); Lymphocytes % 4.1 %; Mean Corpuscular Hemoglobin 32.7 pg (28.0-34.0); Mean Corpuscular Volume 105.2 fL (80-94); Mean Platelet Volume 9.7 fL (7.4-10.4); Monocytes # 0.9 10^3/uL (0.2-0.9); Monocytes % 7.2 %; Neutrophils # 10.7 10^3/uL (1.8-7.7); Neutrophils % 88.4 %; Nucleated Red Blood Cells % 0 %; Platelet Count 299 10^3/cmm (130-400); Red Blood Count 4.44 10^6/uL (4.1-5.3); Red Cell Distribution Width 14.2 % (12.1-15.1); White Blood Count 12.1 10^3/uL (4.0-10.0)
[2019-04-12 03:57] LABS: Magnesium 1.5 mg/dL (1.7-2.3); Phosphorus 3.4 mg/dL (2.5-4.5)
[2019-04-12 03:58] LABS: Alanine Aminotransferase 14 U/L (0-41); Alkaline Phosphatase 87 IU/L (40-130); Anion Gap 11.1 (5-19); Aspartate Amino Transferase 12 U/L (0-40); Blood Urea Nitrogen 25 mg/dL (6-20); Calcium 9.9 mg/dL (8.5-10.5); Chloride 90 mmol/L (98-107); Globulin 3.8 g/dL (1.3-4.6); Glucose 153 mg/dL (65-115); Potassium 4.1 mmol/L (3.5-5.1); Sodium 138 mmol/L (136-145); Total Bilirubin 0.2 mg/dL (0.15-1.2); Total Protein 6.8 g/dL (6.6-8.7)
[2019-04-12 03:59] LABS: Carbon Dioxide 41 mmol/L (22-29)
--- NOTE | 2019-04-12 04:03 | PC.NURSE ---
NEW IV INSERT. 22G IN RIGHT FOREARM. PT TOLERATED WELL. STICKS X1.
[2019-04-12] MEDS: aspirin 81 mg EC Tablet PO (08:52)
[2019-04-12] MEDS: predniSONE 20 mg Tablet 40 MG PO (08:54)
[2019-04-12] MEDS: pantoprazole DR 40 mg Tablet PO (08:54)
[2019-04-12] MEDS: thiamine 100 mg Tablet PO (08:55)
[2019-04-12] MEDS: spironolactone 25 mg Tablet PO (08:55)
[2019-04-12] MEDS: isosorbide mononitrate ER 60 mg Tablet PO (08:55)
[2019-04-12] MEDS: folic acid 1 mg Tablet PO (08:55)
[2019-04-12] MEDS: carvedilol 12.5 mg Tablet 6.25 MG PO ×2 (08:55→17:58)
[2019-04-12] MEDS: multivitamin therapeutic Tablet 1 TAB PO (08:55)
[2019-04-12] MEDS: nicotine 14 mg Patch 1 PATCH TRANSDERMA (08:56)
[2019-04-12] MEDS: budesonide 0.5 mg/2 mL Neb INHALATION ×2 (09:07→20:50)
[2019-04-12] MEDS: FUROsemide 10 mg/mL SDV 10mL 40 MG IVP (09:23)
[2019-04-12] MEDS: regadenoson 0.4 Mg/5 ml Syringe IVP (11:55)
[2019-04-12] MEDS: levofloxacin-dextrose 5 % 750 MG/150 ML PREMIX 150 MG IV (13:05)
--- NOTE | 2019-04-12 13:28 | PC.CHAP ---
Pastoral Care Encounter/Spiritual Assessment Type of Contact [] Declined solar photovoltaic installer visit [] Patient/Family/Request visit [] Outpatient visit [] Follow-up visit [] Physician referral [] Code/Alert [] Routine visit [] Staff referral [] Actively dying [] Patient sleeping [] Family support [] [] Out of room [] Palliative care [] [x] Receiving care in room [] Pre-surgical visit [] Trauma [] Long length of stay [] ICU visit [x] Other: Pt was going to be busy with staff for lengthy period of time Relational/Emotional Strength [] Patient feels connected with others/family/visitors/staff [] Distress [] Loneliness/isolation [] Abandonment Spirituality of Patient [] Person of Shilpi [] Attends Sabianism of their Shilpi [] Believes in Prayer [] Reads Bible or Voodoo materials [] There are Spiritual issues to be addressed Conservation Scientist Interventions [] Prayer [] Active listening [] Non-anxious presence [] Spiritual/emotional support [] Crisis/trauma care [] Spiritual counseling [] Bereavement support [] Provided bereavement packet [] Provided Bible/devotional materials [] Provided toy/stuffed animal, coloring book to patient or family member [] Provided Communion [] Anointing/[place] [] Salvation [] Completed spiritual assessment [] Other: Impact on Illness or Injury [] Angry [] Fearful [] Anxious [] Often cries [] Exhaustion [] Unable to work [] Unable to attend christianity [] Unable to walk/stand [] Unable to read [] Unable to drive [] Unable to eat/drink [] Unable to sleep [] Unable to be with family [] Patient intubated [] Other: Summary Follow up need as pt was going to be busy with staff for lengthy period of time. Time spent with patient
--- NOTE | 2019-04-12 13:49 | NMCV_ITS ---
NM vincent perf SPECT r/s* [id number] Filiberto Thomas Age: 58 Gender: M : 1960 Exam Date: 04/12/2019 11:15 Ordering Phys: Jarrett Medina MD Technologist: YOVANI Santoro Exam Location: [facility] Indications: CHF STRESS TEST Please see separate stress test report in [facility] for full findings IMAGE PROTOCOL Rest/Stress 1 Lexiscan Day Radiopharmaceutical Dose (mCi) Administration Site Administered by Rest: Tc-99m 10.5 IV YOVANI Santoro Sestamibi Stress:Tc-99m 32.7 IV YOVANI Santoro Sestamibi Rest: 12-Apr-2019 60 Discovery 630 Stress: 12-Apr-2019 45 Discovery 630 0.4mg Lexiscan. Images obtained in supine and prone position. SPECT RESULTS Technical Quality: Good Raw Data Analysis: Normal Image Corrections: No attenuation or motion correction applied Summed Stress Score: 2 Summed Rest Score: 2 Summed Difference Score: 2 PERFUSION FINDINGS Medium-size area of fixed perfusion defect noted from basal to distal inferior and inferoseptal wall suggestive of old myocardial infarction versus scarring. FUNCTIONAL RESULTS (calculated via Gated SPECT) Stress Image LV EF (%): 62 Stress EDV (mL):101 TID: 1.09 Stress ESV (mL):38 Rest Image LV EF (%): 62 FUNCTIONAL FINDINGS: There is basal to mid inferior wall hypokinesis. IMPRESSIONS Medium-size area of old myocardial infarction versus scarring noted in basal to distal inferior and inferoseptal wall. This study is negative for ischemia. EKG segment will be documented separately. Sahra Mccann MD (Electronically Signed) Final Date: 12 April 2019 14:37 S
--- NOTE | 2019-04-12 15:17 | XR_ITS ---
WS: [id number] Portable AP upright chest, 04/12/2019 Clinical Data: chf Comparison: Portable chest, 04/10/2019 Findings: No nodules, masses or effusions are seen. The heart is normal. The pulmonary vascularity is not increased. No pneumonia or pneumothorax is seen. There are calcified granulomas extending from t he left hilum and of the left lower lobe. Monitor leads are on the chest wall. XR/XR chest 1V portable [id number] Impression: Negative chest.
--- NOTE | 2019-04-12 15:30 | PM.PN ---
Subjective Subjective: Interval history: Patient seen earlier this morning at around 9 AM. On examination patient sitting comfortably in bed. States he is feeling a lot better now. Denies of having any shortness of breath, cough, abdominal pain, nausea, vomiting, headache, dizziness, tremors. Labs noted this morning. Patient has mild leukocytosis. Patient has remained hemodynamically stable and afebrile in last 24 hours. Vitals/I&O/Wt Last Vital Signs Temp 98.1 F 04/12/19 10:00 Pulse 113 H 04/12/19 15:12 Resp 20 H 04/12/19 15:12 BP 124/86 04/12/19 15:12 Pulse Ox 94 04/12/19 15:12 04/12/19 04/12/19 04/12/19 06:59 14:59 22:59 Intake Total 220 / 1330 220 / 220 Output Total 1800 / 1800 Balance 220 / -2570 -1580 / -1580 Weight last 48 hrs Weight 72.121 kg Weight 72.121 kg Physical Exam Narrative: EXAM NARRATIVE: General: No acute distress, AO x3 HEENT: PERRLA, pupils bilaterally equal and reactive Chest: Normal vesicular breath sounds, mild bilateral occasional fine crackles, equal good air entry bilaterally CVS: S1-S2 regular, no murmurs, no tachycardia, no gallops, no rubs Abdomen: Soft, nontender, no organomegaly, bowel sounds present Neuro: No focal deficits, no facial deformity, AO x3, power 5/5 in all limbs, no tremors Data : 04/12/19 03:05 04/12/19 03:05 A&P Assessment and plan (1) Hypercapnic respiratory failure: - Status: Acute Code(s): J96.92 - Respiratory failure, unspecified with hypercapnia (2) COPD (chronic obstructive pulmonary disease): Status: Acute Code(s): J44.9 - Chronic obstructive pulmonary disease, unspecified (3) Congestive heart failure: Status: Acute Qualifiers: Heart failure chronicity: acute Heart failure type: unspecified Qualified Code(s): I50.9 - Heart failure, unspecified Code(s): I50.9 - Heart failure, unspecified (4) Peripheral vascular disease: Status: Acute Code(s): I73.9 - Peripheral vascular disease, unspecified (5) Hyperlipidemia: Status: Acute Code(s): E78.5 - Hyperlipidemia, unspecified (6) Hypertension: Status: Acute Code(s): I10 - Essential (primary) hypertension (7) CAD (coronary artery disease): History of obstructive CAD seen on angiogram 1 year ago Status: Acute Code(s): I25.10 - Atherosclerotic heart disease of [place] coronary artery without angina pectoris (8) Alcohol use disorder: Status: Acute Additional A&P Information Hypercapnic respiratory failure: Most likely due to congestive heart failure along with COPD. Pt is overall 5 lt negative. CO2 rising in BMP. Symptomatically better. Will decrease lasix to 40 mg IV daily today as patient is mildly dehydrated now. Will change fluid restriction to 2000 cc Echocardiogram results appreciated. Strict intake and output charting. Daily weights. Continue with home dose of Imdur. COPD: Patient is on prednisone 40 mg daily. We will continue the same. Continue with nebulizations with DuoNeb's, budesonide [id number] with albuterol as needed. Oxygen supplementation keeping saturation over 90%. Will most likely need oxygen evaluation before discharge for home O2. Peripheral vascular disease:CT Angio showed Numerous calcified plaques throughout the arterial tree. There is significant stenosis with near occlusion in both common femoral arteries due to heavy calcified plaque. LOCO concerning for PVD. Patient will need outpatient follow-up for further work-up. Unstable angina: Patient states he has had stress test in last 2 years which showed obstructive disease. He is not sure of angiogram. Stress due at 12 today. Will start on PO diet now. Continue with aspirin, atorvastatin. Hypertension: Continue with home dose of Coreg and Imdur. Blood pressure under control for now. Alcohol abuse: Patient states he takes half a gallon of alcohol every day. Right now not in to hold withdrawal. Denies of having any alcohol or seizures in the past. Continue Ativan as per [facility] protocol. Leukocytosis: Most likley due to dehydration. NO fevers. No symptoms concerning for infection Cxr stat ro r/o PNA. Check Procal. Full code. Cardiac diet after stress test. Lovenox for DVT prophylaxis Protonix for PUD prophylaxis Nicotine patch as patient is chronic smoker. Discussed in detail regarding need for smoking cessation. Attestations Medical Necessity Statement*: needs continued hospitalisation for CHF Time Spent in Patient Care: Greater than 35 minutes Coding Level of Care Code Acute Folder Machine Operator for Chg Fwd Diagnoses Hypercapnic respiratory failure J96.92 COPD (chronic obstructive pulmonary disease) J44.9 Congestive heart failure I50.9 Heart failure chronicity: acute Heart failure type: unspecified Peripheral vascular disease I73.9 Hyperlipidemia E78.5 Hypertension I10 CAD (coronary artery disease) I25.10 Alcohol use disorder
[2019-04-12] MEDS: metoprolol tartrate 1 mg/1 mL SDV 5 mL 2.5 MG IV (16:04)
[2019-04-12 17:09] LABS: Procalcitonin 0.04 ng/mL (0-0.5)
[2019-04-12] MEDS: atorvastatin 40 mg Tablet 20 MG PO (17:58)
--- NOTE | 2019-04-12 18:19 | USCV_ITS ---
Filiberto Thomas Age: 58 Gender: M : 1960 Exam Date: 04/12/2019 09:14 Ordering Phys: Jarrett Medina MD Technologist: Spring Aponte Exam Location: [facility] [place] Indication: severe PVD Risk Factors: Smoker Previous Vascular Surgery: None RIGHT LEFT BP: / BP: 152.0/ 74.00 0 Waveform Velocity (cm/s) Velocity (cm/s) Waveform Biphasic 55.6 Iliac Prox 48.3 Biphasic Biphasic Iliac Mid Biphasic 54.4 33.1 Biphasic 47.2 Iliac Distal 54.8 Biphasic Biphasic 383.6 ALUMNI RELATIONS OFFICER 206.9 Biphasic Monophasic 176.3 SFA Prox 41.7 Biphasic Monophasic 93.7 SFA Mid 54.6 Biphasic Monophasic 25.2 SFA Dist 43.1 Biphasic Monophasic 20.0 POP 24.5 Biphasic Monophasic 38.5 DYE RANGE TENDER 31.8 Biphasic Monophasic 28.3 DPA 37.9 Monophasic 0.5 LOCO 0.8 FINDINGS Diminished resting ABIs bilaterally Monophasic and continuous waveforms in the mid to distal SFA and infrapopliteal vessels on the right side. Monophasic waveforms in the infrapopliteal vessels on the left side CONCLUSIONS 1. Abnormal resting LOCO on the right side, suggestive of severe peripheral artery disease, possibly at the level of the common femoral artery with a features of collateral filling of the distal SFA and infrapopliteal vessels. #2. Abnormal resting LOCO on the left side, suggestive of greater than 70% stenosis at the level of the common femoral artery . The comparison with the previous study on 04/10/2019 is difficult because of the change in the hemodynamics Dr Joy Lambert MD [facility] (Electronically Signed) Final Date: 15 April 2019 14:25 S
[2019-04-12] MEDS: quetiapine 100 mg Tablet PO (21:13)
[2019-04-12] MEDS: enoxaparin 40 mg/0.4 mL Syringe SUBCUT (21:13)
[2019-04-13] VITALS (13 sets, daily range): BP systolic 98–114; BP diastolic 69–82; PULSE 83–118; RESP 13–20; TEMP 36.6–36.7; O2SAT 87–99; BMI 24.0
[2019-04-13] MEDS: ipratropium-albuterol 3 mL Neb INHALATION ×3 (02:38→14:48)
[2019-04-13] MEDS: budesonide 0.5 mg/2 mL Neb INHALATION (08:43)
[2019-04-13] MEDS: FUROsemide 40 mg Tablet PO (08:55)
[2019-04-13] MEDS: spironolactone 25 mg Tablet PO (08:55)
[2019-04-13] MEDS: aspirin 81 mg EC Tablet PO (08:55)
[2019-04-13] MEDS: folic acid 1 mg Tablet PO (08:56)
[2019-04-13] MEDS: pantoprazole DR 40 mg Tablet PO (08:57)
[2019-04-13] MEDS: thiamine 100 mg Tablet PO (08:57)
[2019-04-13] MEDS: metoprolol tartrate 50 mg Tablet PO ×2 (08:57→17:43)
[2019-04-13] MEDS: predniSONE 20 mg Tablet 40 MG PO (08:57)
[2019-04-13] MEDS: nicotine 14 mg Patch 1 PATCH TRANSDERMA (08:58)
[2019-04-13] MEDS: multivitamin therapeutic Tablet 1 TAB PO (08:58)
[2019-04-13] MEDS: lisinopril 10 mg Tablet PO (08:59)
--- NOTE | 2019-04-13 09:13 | PM.DCS ---
Discharge Providers Date of Admission: 04/11/19 13:51 Date of Discharge: Date of Discharge: April 13, 2019 Attending Provider at Admission: Jamaal Cochran MD Attending Provider at Discharge: Jarrett Medina MD Primary Care Provider: Jag Sagastume Diagnoses at Discharge Discharge Diagnosis (1) Hypercapnic respiratory failure: Status: Acute (2) COPD (chronic obstructive pulmonary disease): Status: Acute (3) Congestive heart failure: Status: Acute Qualifiers: Heart failure chronicity: acute Heart failure type: unspecified Qualified Code(s): I50.9 - Heart failure, unspecified (4) Peripheral vascular disease: Status: Acute (5) Hyperlipidemia: Status: Acute (6) Hypertension: Status: Acute (7) CAD (coronary artery disease): Status: Acute (8) Alcohol use disorder: Status: Acute Reason for Visit Reason for Visit: Reason For Visit: CHF Hospital Course Discharge Summary: Filiberto Thomas is a 58 year old male with a past medical history of COPD, not oxygen dependent, hypertension, hyperlipidemia, CAD, who presented to the emergency room on April 09, 2019 due to complaints of shortness of breath, and rapid weight gain, bilateral extremity edema, anasarca. Patient states that he was sent to [facility] from the [facility] due to 20 pound weight gain in the last 3 weeks, with anasarca, bilateral lower extremity edema, and shortness of breath. Patient was admitted to the floors for management of congestive heart failure of unknown cause. Patient's hospital course was complicated by development of acute decompensation on the first night for which he was moved to the ICU and started on BiPAP ventilation. Patient was aggressively diuresed with IV Lasix. He responded well to the treatment and was net negative of around 6-1/2 L. As patient stated that his shortness of breath on exertion has been getting progressively worse along with chest pain for last 4 to 5 months he underwent Lexiscan stress test to rule out any ischemia. His Lexiscan was unremarkable and not suggestive of any active ischemia and his EF was found to be 62%. His blood pressure was found to be elevated during hospitalization for which his antihypertensives were adjusted. Patient was found to have decreased pulses in his lower limbs for which he underwent arterial duplex which is suggestive of peripheral vascular disease. Patient has been advised to follow-up with his primary care physician for referral for front desk manager as an outpatient. Patient has been started on aspirin and statins for the same. Patient stated he was not able to get his medications for few weeks as he does not have an appointment with DC so his medications were made available to him from [facility] pharmacy. He is going to have 50 history of smoking state he has a formal diagnosis of COPD but does not use his inhalers frequently. Patient was counseled to stop smoking to which he stated he would think about it. Home oxygen evaluation was done and patient was started on oxygen supplementation. Patient is been discharged in hemodynamically stable condition with advice to follow-up with DC for work-up of peripheral vascular disease. Physical Exam Narrative: EXAM NARRATIVE: General: No acute distress, AO x3 HEENT: PERRLA, pupils bilaterally equal and reactive Chest: Normal vesicular breath sounds, mild bilateral occasional fine crackles, equal good air entry bilaterally CVS: S1-S2 regular, no murmurs, no tachycardia, no gallops, no rubs Abdomen: Soft, nontender, no organomegaly, bowel sounds present Neuro: No focal deficits, no facial deformity, AO x3, power 5/5 in all limbs, no tremors Discharge Data Data Completed and Pending: Completed Studies During Hospitalization Category Date Time Status CT angio chest w abd pel w con Urge nt Cat Scan 04/09/19 16:26 Completed Sestamibi Stress Test Request Routi ne Exams 04/11/19 13:49 Completed XR chest 1V ángela ble [id number] Routine Exams 04/12/19 15:17 Completed XR chest 1V ángela ble [id number] Stat Exams 04/10/19 07:11 Completed XR chest 1V ángela ble [id number] Urgent Exams 04/09/19 11:48 Completed NM vincent perf SPECT r/s* [id number] Routin e Nuc Med 04/12/19 13:49 Completed CV ankle brachial index [id number] Routi ne Ultrasound 04/09/19 22:00 Completed CV echo complete* [id number] Routine Ultrasound 04/09/19 22:00 Completed Pending at discharge Category Date Time [place] [id number] Rout ine Ultrasound 04/12/19 18:19 Taken Labs from last 24 hours 04/12/19 03:05 Procalcitonin 0.04 Vitals: Last Vital Signs Temp 97.8 F 04/13/19 07:08 Pulse 93 04/13/19 08:50 Resp 18 04/13/19 08:48 BP 109/80 04/13/19 07:08 Pulse Ox 95 04/13/19 08:48 Discharge Plan Discharge Patient Disposition: Home, Self-Care Condition: Stable Prescriptions: New furosemide 40 mg Tablet 40 mg PO DAILY@0800 Qty: 30 RF: 0 prednisone 20 mg Tablet 40 mg PO DAILY Qty: 5 RF: 0 pantoprazole 40 mg Tablet,Delayed Release (Dr/Ec) 40 mg PO DAILY Qty: 10 RF: 0 lisinopril 10 mg Tablet 10 mg PO DAILY Qty: 30 RF: 0 metoprolol tartrate 50 mg Tablet 50 mg PO BID Qty: 60 RF: 0 isosorbide mononitrate 30 mg tablet extended release 24 hr 30 mg PO DAILY Qty: 30 RF: 0 Continued Multiple Vitamins Tablet 2 tab PO DAILY RF: 0 pravastatin 40 mg Tablet 20 mg PO QPM RF: 0 Seroquel 200 mg Tablet 100 mg PO BEDTIME RF: 0 thiamine HCl (vitamin B1) 100 mg Tablet 100 mg PO DAILY RF: 0 Aspir-81 81 mg Tablet,Delayed Release (Dr/Ec) 81 mg PO DAILY RF: 0 Ventolin HFA 90 mcg/actuation Hfa Aerosol Inhaler 2 puff INHALATION QID PRN (Reason: Shortness Of Breath) RF: 0 Symbicort 160-4.5 mcg/actuation Hfa Aerosol Inhaler 2 puff INHALATION BID RF: 0 Ensure Plus 0.05-1.5 gram-kcal/mL Liquid 1 ea PO BID RF: 0 Discontinued carvedilol 12.5 mg Tablet 6.25 mg PO BID RF: 0 spironolacton-hydrochlorothiaz 25-25 mg Tablet 1 tab PO DAILY RF: 0 isosorbide mononitrate 60 mg Tablet Extended Release 24 Hr 60 mg PO DAILY RF: 0 Discharge Orders: Discharge Order (Routine); Ordered 04/13/19 Ordered By: Jarrett Medina Other Ambulatory Orders: DME: Oxygen (Order) Location: None Selected Ordered By: Jarrett Medina Referrals: Jag Sagastume [Primary Care Provider] - 2 weeks (The DC will be calling to schedule a hospital followup with Dr. Sagastume at the [facility] clinic to be seen in 2 weeks. If you do not hear from them within a reasonable amount of time, please give them a call at [phone]) Discharge Diet: Cardiac Discharge Activity: Resume usual activity Patient Instructions: Metoprolol (By mouth), Lisinopril (By mouth), Furosemide (By mouth), Prednisone (By mouth), Isosorbide Mononitrate (By mouth), Pantoprazole (By mouth), Congestive Heart Failure, Acute Respiratory Distress Syndrome (DC), Chronic Obstructive Pulmonary Disease (DC), CHF Stoplight Discharge Date/Time: 04/13/19 18:15 Discharge Attestations Time Spent in Discharge Care*: greater than 30 min Specific Discharge Activities: Specific discharge activities: educating patient, discussing with mattress spring encaser/social workers/dc planners and evaluating patient/reviewing data Status at Discharge: Cognitive status at discharge: cognitively intact, Behavioral status at discharge: cooperative, Functional status at discharge: independent ambulation Overall status at discharge: patient is back to baseline Quality Metrics Clinical Quality Measures During this hospital stay, did patient experience: None Coding Level of Care Code Acute Associate Merchant for Jessie Aviles Diagnoses Hypercapnic respiratory failure J96.92 COPD (chronic obstructive pulmonary disease) J44.9 Congestive heart failure I50.9 Heart failure chronicity: acute Heart failure type: unspecified Peripheral vascular disease I73.9 Hyperlipidemia E78.5 Hypertension I10 CAD (coronary artery disease) I25.10 Alcohol use disorder
[2019-04-13] MEDS: levofloxacin-dextrose 5 % 750 MG/150 ML PREMIX 150 MG IV (15:55)
[2019-04-13] MEDS: atorvastatin 40 mg Tablet 20 MG PO (17:44)
== END 2019-04-13 18:15 | disposition home or self-care (01) | DRG 291 ==
LOC: ER 21:10 → CSU 21:11 → ICU 04-10 07:34 → CSU 04-11 16:53
PROVIDERS: Registered Nurse; Admitting Provider Family Medicine; Emergency Provider Emergency Medicine; Family Provider Internal Medicine; PCP Internal Medicine; Visit Provider Student in an Organized Health Care Education/Training Program
DX: I11.0 Hypertensive heart disease with heart failure (principal); J96.01 Acute respiratory failure with hypoxia; J96.92 Respiratory failure, unspecified with hypercapnia; I50.9 Heart failure, unspecified; F10.20 Alcohol dependence, uncomplicated; J43.2 Centrilobular emphysema; E78.5 Hyperlipidemia, unspecified; I25.110 Atherosclerotic heart disease of native coronary artery with unstable angina pectoris; I73.9 Peripheral vascular disease, unspecified; F17.210 Nicotine dependence, cigarettes, uncomplicated; J84.10 Pulmonary fibrosis, unspecified
CPT/HCPCS: 12345; 36415; 36600; 71045; 71275; 74177; 78452; 80048; 80051; 80053; 80061; 82803; 82810; 83036; 83735; 83880; 83986; 84100; 84145; 84443; 84484; 85025; 85378; 87804; 93005; 93017; 93306; 93922; 93925; 94640; 94660; 96372; 96375; 97161; 99283; A9500; G0378; J1650; J1940; J1956; J2785; J2930; J3411; J3490; J7512; J7626; Q9967

== ENCOUNTER → 2019-12-22 13:23 | Outpatient (BNVA) | payer OTHER, SELFPAY | PROVIDERS: Family Provider Internal Medicine; PCP Family Medicine; Visit Provider Internal Medicine Critical Care Medicine | DX: Z11.59 Encounter for screening for other viral diseases (principal); J96.12 Chronic respiratory failure with hypercapnia; J96.11 Chronic respiratory failure with hypoxia | CPT/HCPCS: 87635 ==

== ENCOUNTER 2019-12-26 10:53 | Outpatient (CLI) | payer OTHER, SELFPAY ==
--- NOTE | 2019-12-26 11:31 | PFTS_ITS ---
Date of Study:12/26/19 Date of Dictation: 12/26/2019 MECHANICS: Forced vital capacity (FVC) is reduced Forced expiratory volume in one second (FEV1) is severely reduced FEV1/FVC is severely reduced No postbronchodilator spirometry performed as patient took treatments before the test FLOW VOLUME LOOP: Extreme scooping of expiratory limb suggestive of significant obstructive ventilatory defect . LUNG VOLUMES: Total lung capacity (TLC) is slightly increased. Residual volume (RV) is significantly increased suggestive of significant air trapping and hyperinflation. DIFFUSING CAPACITY FOR CARBON MONOXIDE: Moderately reduced . INTERPRETATION: The pulmonary function tests are consistent with severe obstructive ventilatory defect. Moderate reduction in gas transfer. Correlate clinically. MTDD
== END 2019-12-26 10:54 | disposition home or self-care (01) ==
LOC: RT 10:54
PROVIDERS: PCP Family Medicine; Visit Provider Internal Medicine Critical Care Medicine
DX: J44.9 Chronic obstructive pulmonary disease, unspecified (principal)
CPT/HCPCS: 94010; 94726; 94729

== ENCOUNTER 2020-12-31 12:39 | Outpatient (CLI) | payer OTHER, SELFPAY ==
--- NOTE | 2020-12-31 13:00 | CT_ITS ---
WS: [id number] CTA ABDOMINAL AORTA WITH RUNOFF TECHNIQUE: Contrast enhanced CTA of the abdominal aorta with bilateral lower extremity runoff. Multip lanar reformatted images were obtained. MIP reformats were also reviewed. CLINICAL INFORMATION: I73.9 - Peripheral vascular disease, unspecified COMPARISON: None. DLP: 1350.[address] scans at [facility] use at least one of these dose optimization techniques: automated e xposure control; mA and/or kV adjustment per patient size (includes targeted exams where dose is matc hed to clinical indication); or iterative reconstruction. FINDINGS: Chronic bilateral pars defects L5-S1 with grade 1 anterolisthesis measuring 4 mm. Hepatomeg perla diffuse fatty infiltration. Normal spleen. Small esophageal hiatal hernia. Nodular thickening bot h adrenal glands unchanged from previous. Normal renal parenchymal enhancement. No hydronephrosis. Sigmoid diverticulosis. No evidence of acute diverticulitis. No evidence of high-grade small or large bowel obstruction. Normal appendix in the right lower quadrant. No abdominal or pelvic lymphadenopat hy. No inguinal lymphadenopathy enlarged prostate measuring 3.5 x 3.7 CM. Normal caliber abdominal aorta. Aortic calcification. Celiac and SMA are patent. Proximal main renal arteries are patent with mild ostial stenosis. Normal renal parenchymal enhancement. KIMBER is patent. M ild disc bulging L4-L5 and L5-S1. RIGHT: Right common iliac artery is patent with moderate calcification. Internal iliac artery is luna nt. External iliac artery is patent. Dense calcification with occlusion of the right common femoral a rtery. Superficial femoral artery is occluded at the origin and reconstitutes in the proximal thigh w ith high-grade narrowing. Moderate to severe segmental narrowing in the proximal thigh. SFA is occlud ed in the mid thigh. Reconstitution of the deep femoral artery. Superficial femoral artery remains oc cluded to the adductor hiatus. Reconstitution of the proximal popliteal artery with moderate to sever e segmental stenosis. High-grade stenosis of the popliteal artery [id number] with dense calcifica tion. Popliteal artery remains patent to the trifurcation. Normal 3 vessel runoff to the ankle. LEFT: Left common iliac artery is patent. Internal iliac artery is patent. External iliac artery is p atent. Common femoral artery is occluded in the inguinal region. Multifocal moderate segmental stenos is superficial femoral artery with severe stenosis and near occlusion in the distal thigh. Popliteal artery is patent at the adductor hiatus. Multifocal moderate segmental stenosis in the popliteal sonya ry which is patent to the trifurcation. Dense calcification of the trifurcation. Relatively normal 3 vessel runoff to the ankle. CT/CT angio abd aorta runof [id number] IMPRESSION: 1. RIGHT: Right common femoral artery is occluded. Superficial femoral artery is occluded in the distal thigh and remains occluded to the adductor hiatus. Po pliteal artery reconstitutes with moderate to severe segmental stenosis but rem ains patent to the trifurcation. Relatively normal 3 vessel runoff to the ankle . 2. LEFT: Left common femoral artery is occluded. Moderate to severe segmental stenosis superficial femoral artery which is nearly occluded in the distal thig h. Popliteal artery is patent at the adductor hiatus. Moderate segmental stenos is popliteal artery which remains patent to the trifurcation. Relatively normal 3 vessel runoff to the ankle. 3. Normal caliber abdominal aorta. No aneurysm. 4. Celiac and SMA are patent. 5. Mild bilateral renal ostial calcified stenosis. 6. Additional nonvascular findings as noted above.
[2020-12-31 13:16] LABS: Blood Urea Nitrogen 12 mg/dL (6-20); Glomerular Filtration Rate 76.5 mL/min (90-130)
[2020-12-31] MEDS: iohexol 350 mg/mL 100 mL Btl IV (13:24)
== END 2020-12-31 12:40 | disposition home or self-care (01) ==
PROVIDERS: PCP Family Medicine; Visit Provider Internal Medicine Cardiovascular Disease
DX: Z01.812 Encounter for preprocedural laboratory examination (principal); I73.9 Peripheral vascular disease, unspecified; I70.1 Atherosclerosis of renal artery; I70.8 Atherosclerosis of other arteries
CPT/HCPCS: 75635; 82565; 84520; Q9967

== ENCOUNTER 2021-02-08 06:11 | Outpatient (CLI) | payer OTHER, SELFPAY ==
[2021-02-05 16:28] LABS: Basophils # 0.1 10^3/uL (0.0-0.1); Basophils % 0.8 %; Eosinophils # 0.2 10^3/uL (0.0-0.8); Eosinophils % 2.9 %; Hematocrit 42.1 % (42.0-52.0); Hemoglobin 13.9 g/dL (11.7-16.6); Lymphocytes # 1.4 10^3/uL (0.8-4.8); Lymphocytes % 23.6 %; Mean Corpuscular Hemoglobin 32.3 pg (28.0-34.0); Mean Corpuscular Volume 97.7 fl (80-94); Mean Platelet Volume 9.9 fL (7.4-10.4); Monocytes # 0.6 10^3/uL (0.2-0.9); Neutrophils % 62.5 %; Nucleated Red Blood Cells % 0 %; Platelet Count 265 10^3/cmm (130-400); Red Blood Count 4.31 10^6/uL (4.1-5.3); Red Cell Distribution Width 14.3 % (12.1-15.1); White Blood Count 5.9 10^3/uL (4.0-10.0)
[2021-02-05 16:35] LABS: INR 1.01 (0.83-1.21); Prothrombin Time (Patient) 13.6 Seconds (12.0-15.1)
[2021-02-05 16:39] LABS: Anion Gap 19.4 (5-19); Blood Urea Nitrogen 14 mg/dL (6-20); Calcium 8.9 mg/dL (8.5-10.5); Carbon Dioxide 25 mmol/L (22-29); Chloride 98 mmol/L (98-107); Glomerular Filtration Rate 98.9 mL/min (90-130); Glucose 92 mg/dL (65-115); Osmolality Calculated 286 mOsm/kg (285-295); Potassium 4.4 mmol/L (3.5-5.1); Sodium 138 mmol/L (136-145)
[2021-02-08] VITALS (22 sets, daily range): BP systolic 107–149; BP diastolic 72–120; PULSE 82–107; RESP 13–19; TEMP 36.6; O2SAT 90–97; BMI 25.7
--- NOTE | 2021-02-08 06:00 | XACV_ITS ---
Ht: 170 cm Wt: 74 kg BSA: 1.89 m2 Any Known Allergies: Other Gender: Male : 1960 Exam Type: Invasive Peripheral Vascular Procedure(s): Procedure Description: Peripheral Cath Diagnostic Procedure Procedure Description: Lower extremities' angiography Exam Priority: Routine Lower Extremity Diagnostic Findings Right lower extremity: Access was obtained in right posterior tibial artery. Popliteal artery: Patent TP trunk: Patent Anterior tibial artery: Patent Posterior tibial artery: Patent Peroneal artery: Patent SFA occluded. Lower Extremity Interventional Findings Using a seeker support catheter and Glidewire we attempted to cross the totally occluded SFA artery. However Glidewire was going into dissection plane and could not be redirected into the true lumen. At this time the procedure was aborted with plans for possible surgical revascularization. Conclusions Severe peripheral artery disease on the right lower extremity. Totally occluded SFA artery. Popliteal artery is patent with three-vessel runoff to the ankle. Unsuccessful attempt at revascularization of right lower extremity from pedal access. Left lower extremity angiogram could not be performed as has occluded common femoral artery and severe PAD on CTA. Bilateral common femoral arteries are occluded. Limited access for percutaneous revascularization. Will recommend vascular surgery referral. Recommendations Vascular surgery referral for revascularization options. Optimize medical therapy. Access Site Site: Right Pedal Sheath Size: 6 Fr Hemost... Method: TR Band Hemost... Success: Successful Procedure Details Findings Procedure Consent Obtained. Pre-Procedure Time Out. Identified patient by full name and date of as verbalized by the patient/guarantor. Does the consent match the physician's order: Yes. Accurate & Complete Informed Consent: Yes. Inpatient/Outpatient History & Physical on Chart: Yes. If H&P is completed, is and addenduem needed: Yes; If yes, is the addendum complete: Yes. Visualize and Verify Site with Patient/Guarantor: N/A. Relevant Radiology Images available: Yes. Vibratory Pile Driver Indications: PAD. PERRLA. Strong, equal hand seam sewer bilaterally. Lungs clear x 5 lobes. IV Site on Arrival: 20 gauge in the right forearm. IV Fluids: 0.9% NaCl at KVO. 0 mL infused prior to label printing machinist. Pre Procedural Pulses: bilateral dorsalis pedis was Doppled. Pre Procedural Pulses: bilateral radial was 3+. Pre Procedural Pulses: right posterior tibial was Doppled. Pre Procedural Pulses: left posterior tibial was Absent. The risks, benefits, and alternatives of sedation and/or procedure were discussed by physician. The patient agrees to continue. Procedure started. Oxygen started at 4liters/min via nasal canula. right pedal was prepped with chloroprep then draped in the usual sterile fashion. Physician notified. Baseline sample Acquired. HR: 95 BPM. Equipment: 6F - Radial. Cardiac Cath Pack. ACIST Manifold Kit Model BT 2000. Heparinized Saline (2 units/mL), 1000 mL bag. Physician arrived. Physician scrubbed in. Time out performed with cath team. Lidocaine 1% infiltrated to the right pedal. Arterial access obtained with [employer] pedal access kit. Hand injection performed through the sheath of the right AT, PT, Peroneal. Glidewire in. Seeker Support catheter in over the Glidewire. Glidewire out. Hand injection performed through the Seeker Support catheter of the right AT, PT, Peroneal. Glidewire in. Glidewire out. Hand injection performed through the Seeker Support catheter of the right SFA. Glidewire in. Glidewire out. Hand injection performed through the Seeker Support catheter of the right SFA. Glidewire in. Glidewire out. Hand injection performed through the Seeker Support catheter of the right SFA. Glidewire in. Glidewire out. 0.014 Command 300cm Guidewire in. Command wire out. Hand injection performed through the Seeker Support catheter of the right SFA. Command wire in. Command wire out. Hand injection performed through the Seeker Support catheter of the right SFA. Hand injection performed through the Seeker Support catheter of the right SFA. Seeker Support catheter out. Dr. Martínez scrubbed out. TR band placed. Hemostasis obtained. Post Procedure: Pulses reassessed and unchanged. PERRLA. Strong, equal hand seam sewer bilaterally. No VTE prophylaxis required. Medication's Wasted: Heparin = 1000 units. Medication's Wasted: Lidocaine 1% = 12 mL. Total IV fluids: 68 mL. A TR Band was successful obtaining hemostatsis at the Right Pedal insertion site. Post-op diagnosis: Occluded right SFA. Complications: none. Estimated blood loss: 5mL-10mL. Responsiveness - Normal response to verbal stimuli; alert and oriented, PERRLA. Airway - Unaffected, no intervention required; spontaneous ventilation. Circulation: W/N/L, pulses unchanged. Nausea/Vomiting: No. Procedure completed. Patient transferred by bed to CPRU. Vital chart was stopped. Procedure Medications Start: 7:39 AM Stop: 7:39 AM Medication: Versed Amount: 1 mg Route: I.V. Start: 7:39 AM Stop: 7:39 AM Medication: Fentanyl Amount: 25 mcg Route: I.V. Start: 7:40 AM Stop: 7:40 AM Medication: Versed Amount: 1 mg Route: I.V. Start: 7:40 AM Stop: 7:40 AM Medication: Fentanyl Amount: 25 mcg Route: I.V. Start: 7:47 AM Stop: 7:47 AM Medication: Versed Amount: 1 mg Route: I.V. Start: 7:47 AM Stop: 7:47 AM Medication: Fentanyl Amount: 25 mcg Route: I.V. Start: 8:17 AM Stop: 8:17 AM Medication: Versed Amount: 1 mg Route: I.V. Start: 8:17 AM Stop: 8:17 AM Medication: Fentanyl Amount: 25 mcg Route: I.V. I, the attending physician, have reviewed and verified all procedure medications. Yes, all medications given per verbal order History/Risk Factors Hypertension: Yes Dyslipidemia: Yes Peripheral Arterial Disease (PAD): Yes Obesity: No Renal Disease: No Prior Interventions PCI: No CABG: No Valve Surgery: No Report Signatures Finalized by Rufino Martínez MD on 02/23/2021 06:33 AM
[2021-02-08 07:05] LABS: SARS Covid-2 Antigen Negative (Negative)
[2021-02-08] MEDS: diphenhydrAMINE 50 mg Capsule PO (07:12)
--- NOTE | 2021-02-08 07:17 | PC.NURSE ---
pt not able to tell me what meds he takes. stated if the list says he takes at night he took at 1900 on 02/07/21 and if it says daily then he took at 0700 on 02/07/21.
--- NOTE | 2021-02-08 07:35 | W.PM.OPSFHP ---
Same Day Surgery H&P Indication for Procedure/HPI DATE OF PROCEDURE: February 08, 2021 CHIEF COMPLAINT/INDICATIONFOR SURGICAL PROCEDURE: Severe life style limiting claudication PREOP DIAGNOSIS: Severe lifestyle limiting claudication PLANNED PROCEDRUE: Operation Date: 02/08/21 07:00 Proposed Procedures Peripheral angiogram with possible intervention - Rufino Martínez M.D 60-year-old man with past medical history of hypertension, coronary artery disease with coronary angiogram in 2017 for abnormal stress test and recurrent chest pains at [place] showing chronic occlusion of proximal RCA with [id number] distal collateral flow; no intervention (as per documentation, coronary angiogram report not available) and chronic active heavy smoker smoking one to 2 pack per day. He also has a history of posttraumatic stress disorder, unspecified peripheral vascular disease, COPD and alcohol dependence. Patient has been having severe lifestyle limiting claudication. CT has showed extensive disease bilaterally. Plan for below the knee access on the right side. ROS CONSTITUTIONAL: No fever chills weight loss or gain or night sweats. [] HEENT: Normocephalic, atraumatic.[] RESPIRATORY: No cough, sputum, hemoptysis or wheezing.[] CARDIOVASCULAR: No shortness of breath, chest pain, PND, orthopnea, lower extremity edema, presyncope or syncope. [] GI: no nausea vomiting diarrhea. [] INTERNATIONAL SALES MANAGER: No numbness, tingling, weakness or loss of function in any part of the body. [] MUSCULOSKELETAL: Has significant lower extremity pain on exertion Medications/Allergies* Home Medications Medication Instructions Recorded Confirmed Type Ensure Plus 1 ea PO BID 04/09/19 01/15/21 History albuterol sulfate [Ventolin HFA] 2 puff INHALATION QID PRN 04/09/19 02/16/21 History aspirin [Aspir-81] 81 mg PO DAILY 04/09/19 02/16/21 History budesonide-formoterol [Symbicort] 2 puff INHALATION BID 04/09/19 02/16/21 History multivitamin [Multiple Vitamins] 2 tab PO DAILY 04/09/19 01/15/21 History quetiapine [Seroquel] 100 mg PO BEDTIME 04/09/19 01/15/21 History thiamine HCl (vitamin B1) 100 mg PO DAILY 04/09/19 01/15/21 History pravastatin 40 mg tablet 40 mg PO QPM tab 01/13/21 01/15/21 History Allergies/Adverse Reactions Allergy/AdvReac Type Severity Reaction Status Date / Time poison justine extract Allergy Unknown Unknown Verified 02/16/21 13:49 bee venom protein (honey bee) Allergy ALGY-Anaphy Verified 02/16/21 13:49 laxis Current Medications: Generic Name Dose Route Start Last Admin Trade Name Freq PRN Reason Stop Dose Admin Sodium Chloride 1,000 mls @ 50 mls/hr 02/08/21 06:00 02/08/21 07:13 Sodium Chloride 0.9% IV 02/09/21 01:59 Not Given .Q20H ONE Pertinent History/Comorbid Conditions* Medical History (Updated 12/14/20 @ 08:27 by Sangita Garcia MD) Alcohol use disorder COPD (chronic obstructive pulmonary disease) History of coronary angiogram Hyperlipidemia Hypertension Peripheral vascular disease Surgical History (Updated 04/09/19 @ 22:04 by Jamaal Cochran MD) History of facial surgery Family History (Updated 04/09/19 @ 22:04 by Jamaal Cochran MD) CAD (coronary artery disease) Social History Smoking and tobacco status: current every day smoker cigarettes Packs smoked per day: 1 Years cigarettes smoked: 43 Quit status (tobacco): not considering quitting Alcohol intake: current Alcohol intake frequency: 3 or more drinks per day Lives independently: Yes Household members: none Marital status: service: Yes Current occupational status: disabled History of recent travel: No Current gender identity: Male Pertinent Exam Findings alert, oriented x 3, clear to auscultation bilaterally and regular rate & rhythm Conscious Sedation Assessment PATIENT ASSESSED PRIOR TO SEDATION, WITH NO CHANGE NOTED: Yes AIRWAY EVAL/ANESTHESIA PLAN: normal airway, see other exam findings, ASA III, Monitored Anesthesia, Local Anesthesia and Risks, benefits & alternatives of sedation and/or procedure discussed Recommendations Surgery/Procedure today (Peripheral angiogram with possible percutaneous intervention) Other Plans: Peripheral angiogram with possible percutaneous intervention Coding Level of Care Code Acute Maintenance Job Titles for Jessie Aviles
--- NOTE | 2021-02-08 11:42 | PC.NURSE ---
recovery received pt from cat lab post diagnostic only peripheral. tr band in place on right ankle but oozing. nurse applied pressure til bleeding stopped. pt alert and oriented x3. pt complains of no pain. pt to be monitored.
--- NOTE | 2021-02-08 12:08 | PC.NURSE ---
band off at 1115- plan to dc after 4 hrs. pt will continue to be bedbound for another 3 hrs and will try walking after.
== END 2021-02-08 15:14 | disposition home or self-care (01) ==
PROVIDERS: Internal Medicine; PCP Family Medicine; Visit Provider Internal Medicine Cardiovascular Disease
DX: I70.223 Atherosclerosis of native arteries of extremities with rest pain, bilateral legs (principal); I70.92 Chronic total occlusion of artery of the extremities; I10 Essential (primary) hypertension; E78.5 Hyperlipidemia, unspecified; F17.210 Nicotine dependence, cigarettes, uncomplicated; J44.9 Chronic obstructive pulmonary disease, unspecified; Z79.82 Long term (current) use of aspirin
CPT/HCPCS: 36415; 80048; 85025; 85610; 87426; C1769; C1887; C1894; J2250; J3010; Q0163; Q9967

== ENCOUNTER → 2021-02-16 14:33 | Outpatient (BNVA) | payer OTHER, SELFPAY | PROVIDERS: PCP Family Medicine; Visit Provider Nurse Practitioner Family | DX: I73.9 Peripheral vascular disease, unspecified (principal) | CPT/HCPCS: 80048 ==

== ENCOUNTER 2022-01-06 12:38 | Outpatient (CLI) | payer OTHER, SELFPAY ==
--- NOTE | 2022-01-06 12:46 | US_ITS ---
WS: [id number] RIGHT UPPER QUADRANT ULTRASOUND HISTORY: ELEVATED LIVER FUNCTION TEST/ETOH USE COMPARISON: None available. Liver: 17.7 cm in length. Mildly enlarged liver with attenuation and heterogeneity. No mass identifie d. No bile duct dilatation. Portal Vein: Not imaged. Gallbladder: Normally distended gallbladder with no stones or wall thickening. CBD: 0.4 cm Pancreas: Obscured by bowel gas. Right kidney: 10.3 cm in length. Normal size and echogenicity. No hydronephrosis or mass. Aorta and IVC: Unremarkable abdominal aorta and IVC. No ascites. US/US abdomen limited [id number] IMPRESSION: 1. Normal gallbladder. 2. Mild hepatomegaly and hepatic steatosis. 3. Obscured pancreas.
== END 2022-01-06 12:39 | disposition home or self-care (01) ==
LOC: RAD 12:39
PROVIDERS: PCP Family Medicine; Visit Provider Family Medicine
DX: R94.5 Abnormal results of liver function studies (principal); F10.29 Alcohol dependence with unspecified alcohol-induced disorder; K76.0 Fatty (change of) liver, not elsewhere classified; R16.0 Hepatomegaly, not elsewhere classified
CPT/HCPCS: 76705